=== PATIENT | female | born 1980 ===

== ENCOUNTER 2020-04-14 21:06 | Emergency (ER) | payer OTHER, SELFPAY ==
[2020-04-14 21:17] VITALS: PULSE 84; RESP 18; TEMP 37.2; O2SAT 100; BMI 26.7
--- NOTE | 2020-04-14 21:26 | XR_ITS ---
EXAMINATION: PORTABLE CHEST 1 VIEW CLINICAL INFORMATION: sob . COMPARISON: 11/29/2017. TECHNIQUE: Portable frontal view of the chest was obtained. FINDINGS: The lungs are mildly hypoexpanded. No focal infiltrate, effusion, edema, or pneumothorax. Cardiac and mediastinal silhouettes are within normal limits for technique. No acute bony abnormality seen. IMPRESSION: No evidence of acute disease.
[2020-04-14 21:40] LABS: MANUAL DIFF FLAG NO
[2020-04-14 21:41] LABS: Basophils Percent Auto 0.3 % (0-2); Eosinophils Absolute Auto 0.1 X10*3/uL (0.0-0.4); Eosinophils Percent Auto 1.3 % (0-4); Hematocrit 37.2 % (37-47); Imm Gran Abs Auto 0.01 X10*3/uL (0.00-0.03); Imm Gran Pct Auto 0.1 % (0.0-0.4); Lymphocytes Percent Auto 33.3 % (20-40); Mean Corpuscular HGB Conc 32.3 g/dl (31.0-35.0); Mean Corpuscular Volume 83.8 fL (80-98); Mean Platelet Volume 10.2 fL (9.4-12.3); Monocytes Absolute Auto 0.5 X10*3/uL (0.1-1.2); Monocytes Percent Auto 5.1 % (2-11); Neutrophils Absolute Auto 5.3 X10*3/uL (2.0-8.3); Neutrophils Percent Auto 59.9 % (45-73); Platelet Count 264 X10*3/uL (160-400); Red Blood Count 4.44 X10*6/uL (4.20-5.50); Red Cell Distribution Width 13.7 % (11.0-16.0); White Blood Count 8.9 X10*3/uL (4.8-10.8)
[2020-04-14 22:16] LABS: Anion Gap 14 (12-20); Blood Urea Nitrogen 13 mg/dL (9-16); Calcium 9.3 mg/dL (8.4-10.2); Carbon Dioxide 24 mmol/L (22-29); Chloride 105 mmol/L (96-108); Creatinine Clr Calc Pharmacy 114.3; Estimated Glomerular Filt Rate > 60; Glucose Random 90 mg/dL (60-115); Potassium 3.7 mmol/l (3.3-5.1); Sodium 139 mmol/L (135-145)
--- NOTE | 2020-04-14 22:23 | ED.ASTHMA ---
HPI - Asthma General Chief Complaint: Asthma Stated Complaint: ASTHMA Time Seen by Provider: 04/14/20 22:12 Source: patient Mode of arrival: ambulatory Limitations: no limitations History of Present Illness HPI Narrative: patient comes to emergency room complaining of an asthma exacerbation that occurred yesterday, and also requesting a COVID-19 test. Patient states yesterday she had an asthma exacerbation, used her nebulizer and pump. Patient states she has been using her nebulizer more than usual since yesterday. At this moment, patient is asymptomatic. MD complaint: asthma attack Onset (ago): day(s) Severity: mild Context: none known Associated symptoms: none Related Data Current Asthma Therapy: inhaled bronchodilator Previous Rx's Medication Instructions Recorded duloxetine 30 mg capsule,delayed 30 mg PO BID #60 cap 04/11/20 release prednisone 50 mg PO DAILY #5 tab 04/14/20 Allergies Allergy/AdvReac Type Severity Reaction Status Date / Time Penicillins Allergy Severe HIVES Unverified 03/20/20 14:39 penicillin V Allergy Unknown Verified 01/31/20 00:00 ondansetron Allergy Unknown GERD Uncoded 01/29/20 00:00 penicillin Allergy Unknown hives Uncoded 01/29/20 00:00 Review of Systems Review of Systems: Constitutional: No Weight loss, No Fever, No Chills, No Night Sweats, No Fatigue, No Malaise ENT/Mouth: No Hearing loss, No Ear Pain, No Nasal Congestion, No Sinus Pain, No Hoarseness, No sore throat, No Rhinorrhea, No Swallowing Difficulty Eyes: No Eye Pain, No Swelling, No Redness, No Foreign Body, No Discharge, No Vision Changes Cardiovascular: No Chest Pain, No SOB, No Dyspnea on Exertion, No Orthopnea, No Edema, No Palpitations Respiratory: No Cough, No Sputum, Wheezing yesterday, shortness of breath yesterday, resolved now Gastrointestinal: No Nausea, No Vomiting, No Diarrhea, No Constipation, No abdominal Pain, No Hematochezia, No Melena Genitourinary: no irregular bleeding, No Dysuria, No Urinary Frequency, No Hematuria, No Urinary Incontinence, No Urgency, No Flank Pain, No Urinary Flow Changes, No Hesitancy Musculoskeletal: No joint pain, No Myalgias, No Joint Swelling Skin: No Skin Lesions, No rash Neuro: No Weakness, No Numbness, No Paresthesias, No Loss of Consciousness, No Dizziness, No Headache Psych: No Anxiety/Panic, No Depression, No SI/HI/AH/VH, No Social Issues, Heme/Lymph: No Bruising, No Bleeding,No Lymphadenopathy Endocrine: No Polyuria, No Polydipsia, No Temperature Intolerance [facility] Social History Social History Advance Directives: No Advance Directives Information Provided: Yes Physical Exam Vital Signs: Vital Signs: Vital Signs Temp Pulse Resp Pulse Ox 04/14/20 21:17 99.0 F 84 18 100 Body Mass Index 26.7 Appearance: Alert. Oriented X3. No acute distress. Eyes: Pupils equal, round and reactive to light. ENT: Pharynx normal. Neck: Normal inspection. Neck supple. No lymph nodes noted. No crepitus CVS: Normal heart rate and rhythm. Pulses normal. Normal S1 and S2 Respiratory: No respiratory distress. Breath sounds normal. No Wheezing. No rales Abdomen: Soft and nontender. No rigidity. No distention. good BS x4 Skin: Skin warm and dry. Normal skin color. Normal skin turgor. Extremities: No lower extremity edema. No lower extremity edema. No Lacerations. No Rash Neuro: Oriented X 3. No motor deficit. No sensory deficit. Moving all extermities. No slurred speech. Course Reevaluation(s) Reevaluation #1: physical exam within normal limits, vitals stable MDM - Asthma MDM Narrative Medical decision making narrative: I discussed the physical exam with the patient, which is completely normal. Patient has no wheezing, good air movement, oxygen saturation 100% on room air, per patient's request, she was tested for COVID-19. Lab Data Result diagrams: 04/14/20 21:36 04/14/20 21:36 Labs: Lab Results 04/14/20 04/14/20 04/14/20 Range/Units 21:36 21:36 21:36 WBC 8.9 (4.8-10.8) X10*3/uL RBC 4.44 (4.20-5.50) X10*6/uL Hgb 12.0 (12.0-16.0) g/dl Hct 37.2 (37-47) % MCV 83.8 (80-98) fL MCH 27.0 (27.0-33.0) pg MCHC 32.3 (31.0-35.0) g/dl RDW 13.7 (11.0-16.0) % Plt Count 264 (160-400) X10*3/uL MPV 10.2 (9.4-12.3) fL Immature Gran % (Auto) 0.1 (0.0-0.4) % Neut % (Auto) 59.9 (45-73) % Lymph % (Auto) 33.3 (20-40) % [place] % (Auto) 5.1 (2-11) % Eos % (Auto) 1.3 (0-4) % Baso % (Auto) 0.3 (0-2) % Lymph # (Auto) 3.0 (1.2-4.9) X10*3/uL [place] # (Auto) 0.5 (0.1-1.2) X10*3/uL Eos # (Auto) 0.1 (0.0-0.4) X10*3/uL Baso # (Auto) 0.0 (0.0-0.2) X10*3/uL Abs Immat Gran (auto) 0.01 (0.00-0.03) X10*3/uL Absolute Neuts (auto) 5.3 (2.0-8.3) X10*3/uL Absolute Nucleated RBC 0.000 (0.0-0.012) X10*3/uL Nucleated RBC % (auto) 0.0 (0.0-0.2) /100WBC Hold Blue Top SEE NOTE Sodium 139 (135-145) mmol/L Potassium 3.7 (3.3-5.1) mmol/l Chloride 105 (96-108) mmol/L Carbon Dioxide 24 (22-29) mmol/L Anion Gap 14 (12-20) BUN 13 (9-16) mg/dL Creatinine 0.65 (0.5-1.4) mg/dL Estim Creat Clear Calc 114.3 Estimated GFR > 60 Random Glucose 90 (60-115) mg/dL Calcium 9.3 (8.4-10.2) mg/dL Discharge Plan Discharge Clinical Impression: Normal physical exam, Asthma exacerbation, mild Patient Disposition: Home, Self-Care Instructions: Asthma (ED) Additional Instructions: please self isolate until you have your COVID-19 results back, you will receive a phone call within 72 hours. If you have any worsening symptoms, any new symptoms, please return to the emergency room or call 911 Prescriptions: New prednisone 50 mg tablet 50 mg PO DAILY Qty: 5 RF: 0 No Action duloxetine [Cymbalta] 30 mg capsule,delayed release(DR/EC) 30 mg PO BID Qty: 60 RF: 3
[2020-04-14 22:33] VITALS: BP 140/85; PULSE 79; RESP 18; TEMP 36.6; O2SAT 100
[2020-04-14 22:36] LABS: B Type Natriuretic Peptide 12 pg/mL (<100); Troponin-I High Sensitivity < 3.5 ng/L (<3.5-17.0)
== END 2020-04-14 23:17 | disposition home or self-care (01) ==
PROVIDERS: Emergency Provider Emergency Medicine; PCP Internal Medicine
DX: J45.901 Unspecified asthma with (acute) exacerbation (principal); Z20.828 Contact with and (suspected) exposure to other viral communicable diseases; Z79.899 Other long term (current) drug therapy
CPT/HCPCS: 36415; 71045; 80048; 83880; 84484; 85025; 87635; 99284

== ENCOUNTER → 2020-05-07 14:46 | Outpatient (BNVA) | payer OTHER, SELFPAY | PROVIDERS: PCP Internal Medicine; Visit Provider Internal Medicine Pulmonary Disease | DX: J45.40 Moderate persistent asthma, uncomplicated (principal); J45.901 Unspecified asthma with (acute) exacerbation; Z91.09 Other allergy status, other than to drugs and biological substances; Z88.0 Allergy status to penicillin; Z79.52 Long term (current) use of systemic steroids | CPT/HCPCS: 90686; 99212 ==

== ENCOUNTER 2020-06-13 09:39 | Outpatient (REF) | payer OTHER, SELFPAY ==
[2020-06-19 09:47] LABS: HPV mRNA E6/E7 rflx Not Detected (Not Detected)
== END 2020-06-13 09:40 | disposition home or self-care (01) ==
LOC: HO.LAB 09:39
PROVIDERS: PCP Internal Medicine; Referring Provider Internal Medicine; Visit Provider Advanced Practice Midwife
DX: Z01.419 Encounter for gynecological examination (general) (routine) without abnormal findings (principal); N63.0 Unspecified lump in unspecified breast; N64.4 Mastodynia
CPT/HCPCS: 87624; 87625; 88142

== ENCOUNTER 2020-07-18 14:11 | Outpatient (REF) | payer OTHER, SELFPAY ==
--- NOTE | 2020-07-18 14:20 | MM_ITS ---
EXAMINATION: MM DIAGNOSTIC DIGITAL BREAST TOMOSYNTHESIS, BILATERAL US DIAGNOSTIC ULTRASOUND BREAST, BILATERAL CLINICAL INFORMATION: 40-year-old with palpable areas right 9:00 position and left upper inner quadrant on clinical breast exam. Also tenderness outer left breast. No prior breast imaging. Family history breast cancer in aunt. The lifetime risk of breast cancer based on the Tyrer-Cuzick Model is 10%. COMPARISON: None (current study represents initial baseline exam). TECHNIQUE: Digital breast tomosynthesis is performed in both the craniocaudal and mediolateral oblique views along with computer-aided detection (CAD). Synthesized 2D images are generated from the tomosynthesis. Additional exaggerated right CC view is provided. Ultrasound right breast is targeted to the outer quadrant. Ultrasound left breast is targeted to the upper inner quadrant and 2:00 to 3:00 position. Grayscale imaging and color Doppler are performed without and with harmonics. FINDINGS: The breasts are heterogeneously dense, which may obscure small masses (ACR BI-RADS breast composition Category c). There is no visible mass or architectural abnormality. No abnormal calcifications. The axilla and skin contours are unremarkable. There is no skin thickening or coarsening of the Ilya's ligaments. Ultrasound outer right breast demonstrates a cyst 9:00 position 6 cm from nipple measuring approximately 1.5 x 1.0 cm. There is no solid mass or architectural abnormality. Ultrasound left breast demonstrates a cyst 3:00 position measuring under 1 cm. There is no solid mass or architectural abnormality. No skin thickening or edema tracking in soft tissue planes. Results are discussed with the patient at time of visit. MM/MM tomosynthesis diagnostic BI IMPRESSION: 1. No mammographic evidence of malignancy or inflammatory changes. 2. Simple cyst right breast 9:00 position 1.5 cm and left breast 3:00 position 0.8 cm. ASSESSMENT: BI-RADS 2: Benign RECOMMENDATION: Routine annual mammography screening, beginning age 40, or earlier as clinical risk factors warrant. This patient's information was entered into a reminder system with a target due date for their next mammogram.
== END 2020-07-18 14:12 | disposition home or self-care (01) ==
LOC: HO.MAMMO 14:11
PROVIDERS: Visit Provider Advanced Practice Midwife
DX: N63.0 Unspecified lump in unspecified breast (principal); N64.4 Mastodynia
CPT/HCPCS: 76642; 77062; 77066

== ENCOUNTER → 2020-10-29 14:00 | Outpatient (BNVA) | payer OTHER, SELFPAY | PROVIDERS: PCP Internal Medicine; Visit Provider Internal Medicine Pulmonary Disease | DX: J45.40 Moderate persistent asthma, uncomplicated (principal); M79.7 Fibromyalgia; Z91.09 Other allergy status, other than to drugs and biological substances; Z88.0 Allergy status to penicillin; Z79.51 Long term (current) use of inhaled steroids | CPT/HCPCS: 99212 ==

== ENCOUNTER → 2021-03-03 13:42 | Outpatient (BNVA) | payer OTHER, SELFPAY | PROVIDERS: PCP Internal Medicine; Visit Provider Internal Medicine Pulmonary Disease | DX: J45.40 Moderate persistent asthma, uncomplicated (principal) | CPT/HCPCS: 99212 ==

== ENCOUNTER 2021-03-11 11:33 | Outpatient (REF) | payer OTHER, SELFPAY | END 2021-03-11 11:34 | disposition home or self-care (01) | LOC: HO.LAB 11:33 | PROVIDERS: PCP Internal Medicine; Visit Provider Internal Medicine | DX: Z20.822 Contact with and (suspected) exposure to COVID-19 (principal) | CPT/HCPCS: C9803; U0003; U0005 ==

== ENCOUNTER 2021-07-08 11:12 | Outpatient (REF) | payer OTHER, SELFPAY ==
[2021-07-08 13:23] LABS: Binax Internal Control QC Valid; Binax Now Covid-19 Ag Negative (Negative)
== END 2021-07-08 11:13 | disposition home or self-care (01) ==
LOC: HO.LAB 11:12
PROVIDERS: Visit Provider Internal Medicine
DX: Z20.822 Contact with and (suspected) exposure to COVID-19 (principal)
CPT/HCPCS: 36415; C9803

== ENCOUNTER 2021-07-30 13:06 | Outpatient (REF) | payer OTHER, SELFPAY ==
[2021-07-30 14:08] LABS: Binax Internal Control QC Valid; Binax Now Covid-19 Ag Negative (Negative)
== END 2021-07-30 13:07 | disposition home or self-care (01) ==
LOC: HO.LAB 13:06
PROVIDERS: Visit Provider Internal Medicine
DX: Z20.822 Contact with and (suspected) exposure to COVID-19 (principal)
CPT/HCPCS: C9803

== ENCOUNTER 2021-07-31 14:02 | Emergency (ER) | payer OTHER, SELFPAY ==
--- NOTE | ~2021-07-31 | XR_ITS ---
EXAMINATION: XR CHEST CLINICAL INFORMATION: Cough COMPARISON: Previous chest x-ray April 2020 TECHNIQUE: 2 views of the chest were obtained. FINDINGS: The cardiac and mediastinal contours are normal. The lungs are clear. There is no pleural effusion or pneumothorax. There is mild curvature of the lower thoracic and upper lumbar spine to the left. XR/XR chest 2V IMPRESSION: No evidence for acute disease in the chest.
--- NOTE | 2021-07-31 14:10 | ECG_ITS ---
Test Reason : CHEST PAIN Blood Pressure : / mmHG Vent. Rate : 076 BPM Atrial Rate : 076 BPM P-R Int : 126 ms QRS Dur : 086 ms QT Int : 394 ms P-R-T Axes : -02 024 027 degrees QTc Int : 443 ms Normal sinus rhythm Cannot rule out Anterior infarct , age undetermined Abnormal ECG No previous ECGs available Referred By: Generic ED Physician Electronically Signed By:CORIN YANG MD
[2021-07-31 14:12] VITALS: BP 119/71; PULSE 76; RESP 18; TEMP 36.7; O2SAT 96; BMI 26.5
--- NOTE | 2021-07-31 16:26 | ECG_ITS ---
Test Reason : CHEST PAIN Blood Pressure : / mmHG Vent. Rate : 068 BPM Atrial Rate : 068 BPM P-R Int : 126 ms QRS Dur : 078 ms QT Int : 416 ms P-R-T Axes : 000 041 028 degrees QTc Int : 442 ms Normal sinus rhythm Normal ECG When compared with ECG of 31-JUL-2021 14:10, No significant change was found Referred By: Mili Edouard Electronically Signed By:NOVA GEE
[2021-07-31 16:41] VITALS: BP 118/65; PULSE 70; RESP 17; TEMP 36.6; O2SAT 100
[2021-07-31 16:45] LABS: MANUAL DIFF FLAG NO
[2021-07-31 16:48] LABS: Basophils Percent Auto 0.2 % (0-2); Eosinophils Absolute Auto 0.1 X10*3/uL (0.0-0.4); Eosinophils Percent Auto 1.4 % (0-4); Hematocrit 35.7 % (37.0-47.0); Hemoglobin 11.4 g/dl (12.0-16.0); Imm Gran Abs Auto 0.03 X10*3/uL (0.00-0.03); Imm Gran Pct Auto 0.4 % (0.0-0.4); Lymphocytes Absolute Auto 2.8 X10*3/uL (1.2-4.9); Lymphocytes Percent Auto 32.9 % (20-40); Mean Corpuscular HGB Conc 31.9 g/dl (31.0-35.0); Mean Corpuscular Hemoglobin 25.4 pg (27.0-33.0); Mean Corpuscular Volume 79.5 fL (80.0-98.0); Mean Platelet Volume 10.3 fL (9.4-12.3); Monocytes Absolute Auto 0.5 X10*3/uL (0.1-1.2); Monocytes Percent Auto 5.7 % (2-11); Neutrophils Percent Auto 59.4 % (45-73); Platelet Count 250 X10*3/uL (160-400); Red Blood Count 4.49 X10*6/uL (4.20-5.50); Red Cell Distribution Width 15.1 % (11.0-16.0); White Blood Count 8.4 X10*3/uL (4.8-10.8)
[2021-07-31 16:55] LABS: D Dimer High Sensitivity 221 NG/ML
--- NOTE | 2021-07-31 17:05 | ED_ITS ---
HPI - Chest Pain General Chief Complaint: Chest Pain Stated Complaint: chest pain Time Seen by Provider: 07/31/21 17:05 Source: patient Mode of arrival: ambulatory Limitations: no limitations History of Present Illness HPI narrative: Patient is a 41 year old female presenting to the emergency department today with chest pain. Patient states that she was diagnosed with COVID-19 on July 15 of this year. Patient states that she has had these symptoms consistently since being diagnosed. Patient states that she was recently retested and was found to be COVID-19 negative. Patient describes the chest pain as being across her entire chest, and feeling tight. Patient states that the pain does not ra diate anywhere. Patient states that nothing makes the pain worse or better. Patient denies any dizziness, lightheadedness, abdominal pain, nausea, vomiting, fever, chills, blurry vision, double vision, loss of vision, vaginal bleeding, vaginal discharge, difficulty breathing, shortness of breath, back pain, night sweats, pain with urination, increased urinary frequency, increased urinary urgency, blood in her urine or stool, syncope or a near syncopal episode, recent trauma or falls, bowel incontinence, bladder incontinence, bowel retention, bladder retention, or any other complaints at this time. 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 MD complaint: chest pain Onset (ago): week(s) Timing of current episode: stable Prior episodes: Yes Onset: during rest Pain radiation: none Severity: mild Quality: tightness Relieving factors: nothing Exacerbating factors: nothing Context: recent illness (COVID-19) Treatment prior to arrival: none Risk Factors Coronary artery disease risk factors: none Thoracic aortic dissection risk factors: none Related Data Home Medications Medication Instructions Recorded Confirmed ipratropium 0.5 mg-albuterol 3 mg ml INHALATION 05/07/20 01/19/21 (2.5 mg base)/3 mL nebulization soln Previous Rx's Medication Instructions Recorded duloxetine 30 mg capsule,delayed 30 mg PO BID #60 cap 04/11/20 release (Cymbalta) tizanidine 4 mg tablet 4 mg PO BEDTIME #90 tab 04/23/20 cyclobenzaprine 5 mg tablet 5 mg PO DAILY PRN #10 tab 11/26/20 Breo Ellipta 200 mcg-25 mcg/dose 1 ea PO DAILY #60 ea NS 02/18/21 powder for inhalation (fluticasone furoate-vilanterol) albuterol sulfate 90 mcg/actuation 2 puff INHALATION Q4-6H PRN 30 03/03/21 aerosol inhaler Days #1 ea prednisone 10 mg tablet See Rx Instructions PO DAILY #50 03/03/21 tab dexamethasone 6 mg tablet 6 mg PO DAILY 10 Days #10 tab 07/28/21 dexamethasone 6 mg tablet 6 mg PO DAILY 7 Days #7 tab 07/31/21 Allergies Allergy/AdvReac Type Severity Reaction Status Date / Time Penicillins Allergy Severe HIVES Verified 07/31/21 14:12 penicillin V Allergy Unknown Unknown Verified 07/31/21 14:12 Review of Systems Verdana 4l Constitutional: Verdana 4d Constitutional: Verdana 4d Verdana 4d Reports no additional constitutional complaints, Denies chills, Denies fever(s) and Denies night sweats Verdana 4l Eyes: Verdana 4d Verdana 4d Eyes: Verdana 4d Reports no additional eye complaints, Denies blurry vision, Denies change in vision, Denies diplopia, Denies eye discharge, Denies loss of vision and Denies eye pain Verdana 4l ENT: Verdana 4d Denies dizziness Verdana 4l Cardiovascular: Verdana 4d Cardiovascular: Verdana 4d Verdana 4d Reports no additional cardiovascular complaints, Reports chest pain, Denies lightheadedness, Denies Loss of Consciousness and Denies dyspnea Verdana 4l Respiratory: Verdana 4d Verdana 4d Respiratory: Verdana 4d Reports no additional respiratory complaints and Denies dyspnea Verdana 4l Gastrointestinal: Verdana 4d Gastrointestinal: Verdana 4d Verdana 4d Reports no additional gastrointestinal complaints, Denies abdominal pain, Denies melena, Denies hematochezia, Denies change in bowel habits and Denies change in stool character Verdana 4l Genitourinary: Verdana 4d Verdana 4d Genitourinary: Verdana 4d Denies hematuria, Denies urinary frequency, Denies dysuria, Denies urinary incontinence, Denies urinary hesitancy and Denies urinary urgency Verdana 4l Musculoskeletal: Verdana 4d Musculoskeletal: Verdana 4d Verdana 4d Reports no additional musculoskeletal complaints, Denies numbness and Denies tingling Verdana 4l Neurologic: Verdana 4d Denies dizziness, Denies loss of vision, Denies numbness and Denies tingling Verdana 4l Psychiatric: Verdana 4d Verdana 4d Psychiatric: Verdana 4d Reports no additional psychiatric complaints Verdana 4l Endocrine: Verdana 4d Verdana 4d Endocrine: Verdana 4d Reports no additional endocrine complaints Verdana 4l Hematologic/Lymphatic: Verdana 4d Hematologic/Lymphatic: Verdana 4d Verdana 4d Reports no additional hematologic/lymphatic complaints Verdana 4l Allergic/Immunologic: Verdana 4d Allergic/Immunologic: Verdana 4d Verdana 4d Reports no additional allergic/immunologic complaints PMFSH Past Medical History Attestation statement: The following information was validated with the patient. Source: old records reviewed Medical History Fibromyalgia Polyarthralgia Surgical History Hx of wisdom tooth extraction Family History Family History Maternal Aunt Stomach cancer Paternal Aunt Breast cancer Social History Social History Alcohol intake: never Patient Tobacco Use Status: Never used Tobacco Use of substances other than those prescribed or required for medical reasons: No Advance Directives: No Advance Directives Information Provided: Yes Gender identity: Female Physical Exam Verdana 4l Vital Signs: Verdana 4d Verdana 4d Vital Signs: Verdana 4d Verdana 4Bd Last Vital Signs Verdana 4d Recruiting Manager New 4d Recruiting Manager New 4d Temp 98 F 07/31/21 16:41 Recruiting Manager New 4d Pulse 70 07/31/21 16:41 Recruiting Manager New 4d Resp 17 07/31/21 16:41 BP 118/65 07/31/21 16:41 Pulse Ox 100 07/31/21 16:41 BMI result Body Mass Index 26.5 Const: General: cooperative, no acute distress, alert and awake Nutritional Appearance: well nourished Orientation/consciousness: patient oriented x3 Limitations: no limitations HENMT: Head: Yes normal to inspection and Yes atraumatic Ears: hearing grossly normal bilaterally and external ears normal General nose exam: Normal external nose present, no nasal discharge noted and no epistaxis Face and sinus: Yes normal facial exam, No abrasion and No laceration Mouth: Normal oral and palatal mucosa present, no drooling and no muffled voice Eyes: General: appearance normal, both eyes and all related structures Periorbital: periorbital findings normal Eyelids: Yes eyelids normal Conjunctivae: conjunctivae normal Pupils: Equal, round and reactive pupils present EOM: EOMs intact bilaterally Neck: Neck: Yes normal visual inspection, Yes full ROM and Yes no lymphadenopathy Chest: Chest palpation & inspection: normal inspection of the chest and normal palpation of entire chest wall Resp: Effort & Inspection: normal respiratory effort and able to speak in complete sentences Auscultation: clear to auscultation bilaterally Cardio: Rate: regular rate Rhythm: regular rhythm GI: Inspection: Yes normal to inspection Neuro: General: patient oriented x3 and moves all extremities Cranial nerves: Yes Equal, round and reactive pupils present Cognition (Neuro): normal cognition Motor exam (neuro): 5/5 motor strength present throughout Sensory Exam: Normal double simultaneous stimulation for sensation Coordination: [id number] test normal Extrem: General: Yes normal to inspection, Yes full ROM and Yes capillary refill normal Psych: Appearance: grossly normal Mental Status: mental status grossly normal Affect: normal affect Attitude: cooperative Thought process: Normal thought process present Thought content: Normal thought content present Insight: Good insight present (Psych) Course Course Course Narrative: Patient's chest x-ray was interpreted by a radiologist as showing no acute process. MDM - Chest Pain MDM Narrative Medical decision making narrative: Patient is a 41 year old female presenting to the emergency department today with chest pain. Patient's physical exam was unremarkable. Patient's blood work was unremarkable including a negative d dimer and troponin. Patient's EKG was unremarkable. Patient's chest x-ray showed no acute process. I explained my physical exam findings as well as all test results to the patient. I answered all questions asked by the patient. Patient received IM Toradol which she stated helped her symptoms significantly. I stressed the importance of the patient taking her medication as prescribed. 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 I stressed the importance of the patient returning to the emergency department immediately if her symptoms were to worsen or if she were to develop any dizziness, shortness of breath, difficulty breathing, chest pain, blurry vision, loss of vision, nausea, vomiting, abdominal pain, fever, chills, back pain, or any other complaints. Patient verbalized agreement and understanding with this treatment plan and discharge. Differential Diagnosis Differential diagnosis: Likely stable angina, atypical chest pain, costochondritis and chest pain Medical Records Data Attestation: I reviewed the patient's medical records. Lab Data Attestation: I reviewed the patient's lab results. Result diagrams: 07/31/21 16:39 07/31/21 16:39 Labs: Lab Results 07/31/21 07/31/21 07/31/21 Range/Units 16:39 16:39 16:39 WBC 8.4 (4.8-10.8) X10*3/uL RBC 4.49 (4.20-5.50) X10*6/uL Hgb 11.4 L (12.0-16.0) g/dl Hct 35.7 L (37.0-47.0) % MCV 79.5 L (80.0-98.0) fL MCH 25.4 L (27.0-33.0) pg MCHC 31.9 (31.0-35.0) g/dl RDW 15.1 (11.0-16.0) % Plt Count 250 (160-400) X10*3/uL MPV 10.3 (9.4-12.3) fL Immature Gran % (Auto) 0.4 (0.0-0.4) % Neut % (Auto) 59.4 (45-73) % Lymph % (Auto) 32.9 (20-40) % [place] % (Auto) 5.7 (2-11) % Eos % (Auto) 1.4 (0-4) % Baso % (Auto) 0.2 (0-2) % Lymph # (Auto) 2.8 (1.2-4.9) X10*3/uL [place] # (Auto) 0.5 (0.1-1.2) X10*3/uL Eos # (Auto) 0.1 (0.0-0.4) X10*3/uL Baso # (Auto) 0.0 (0.0-0.2) X10*3/uL Abs Immat Gran (auto) 0.03 (0.00-0.03) X10*3/uL Absolute Neuts (auto) 5.0 (2.0-8.3) x10*3/uL Absolute Nucleated RBC 0.000 (0.0-0.012) X10*3/uL Nucleated RBC % (auto) 0.0 (0.0-0.2) /100WBC D-Dimer High Sensitivty 221 NG/ML Sodium 140 (135-145) mmol/L Potassium 3.4 (3.3-5.1) mmol/L Chloride 106 (96-108) mmol/L Carbon Dioxide 26 (22-29) mmol/L Anion Gap 11 L (12-20) BUN 18 H (9-16) mg/dL Creatinine 0.71 (0.5-1.4) mg/dL Estim Creat Clear Calc 98.4 Estimated GFR > 60 Random Glucose 93 (60-115) mg/dL Calcium 9.0 (8.4-10.2) mg/dL Total Bilirubin 0.8 (0.0-1.0) mg/dL AST 10 (5-31) U/L ALT 11 (0-31) U/L Alkaline Phosphatase 87 (39-117) U/L Troponin I High Sens (<3.5-17.0) ng/L Total Protein 7.0 (6.5-8.0) g/dL Albumin 4.0 (3.5-5.0) g/dL 07/31/21 Range/Units 16:39 WBC (4.8-10.8) X10*3/uL RBC (4.20-5.50) X10*6/uL Hgb (12.0-16.0) g/dl Hct (37.0-47.0) % MCV (80.0-98.0) fL MCH (27.0-33.0) pg MCHC (31.0-35.0) g/dl RDW (11.0-16.0) % Plt Count (160-400) X10*3/uL MPV (9.4-12.3) fL Immature Gran % (Auto) (0.0-0.4) % Neut % (Auto) (45-73) % Lymph % (Auto) (20-40) % [place] % (Auto) (2-11) % Eos % (Auto) (0-4) % Baso % (Auto) (0-2) % Lymph # (Auto) (1.2-4.9) X10*3/uL [place] # (Auto) (0.1-1.2) X10*3/uL Eos # (Auto) (0.0-0.4) X10*3/uL Baso # (Auto) (0.0-0.2) X10*3/uL Abs Immat Gran (auto) (0.00-0.03) X10*3/uL Absolute Neuts (auto) (2.0-8.3) x10*3/uL Absolute Nucleated RBC (0.0-0.012) X10*3/uL Nucleated RBC % (auto) (0.0-0.2) /100WBC D-Dimer High Sensitivty NG/ML Sodium (135-145) mmol/L Potassium (3.3-5.1) mmol/L Chloride (96-108) mmol/L Carbon Dioxide (22-29) mmol/L Anion Gap (12-20) BUN (9-16) mg/dL Creatinine (0.5-1.4) mg/dL Estim Creat Clear Calc Estimated GFR Random Glucose (60-115) mg/dL Calcium (8.4-10.2) mg/dL Total Bilirubin (0.0-1.0) mg/dL AST (5-31) U/L ALT (0-31) U/L Alkaline Phosphatase (39-117) U/L Troponin I High Sens < 3.5 (<3.5-17.0) ng/L Total Protein (6.5-8.0) g/dL Albumin (3.5-5.0) g/dL Discharge Plan Discharge Clinical Impression: COVID-19 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 Patient Disposition: Home, Self-Care Instructions: COVID-19 (Coronavirus Disease 2019) (ED) Prescriptions: New dexamethasone 6 mg tablet 6 mg PO DAILY 7 Days Qty: 7 0RF No Action duloxetine [Cymbalta] 30 mg capsule,delayed release(DR/EC) 30 mg PO BID Qty: 60 3RF Rx Instructions: 1 tab PO BID tizanidine 4 mg tablet 4 mg PO BEDTIME Qty: 90 1RF Breo Ellipta 200-25 mcg/dose blister with device 1 ea PO DAILY Qty: 60 2RF dexamethasone 6 mg tablet 6 mg PO DAILY 10 Days Qty: 10 0RF cyclobenzaprine 5 mg tablet 5 mg PO DAILY PRN (Reason: muscle spasm) Qty: 10 0RF Rx Instructions: Do not take with tizanidine medication ipratropium-albuterol 0.5 mg-3 mg(2.5 mg base)/3 mL solution for nebulization inhalation 0RF albuterol sulfate 90 mcg/actuation HFA aerosol inhaler 2 puff inhalation Q4-6H PRN (Reason: shortness of breath or wheezing) 30 Days Qty: 1 6RF prednisone 10 mg tablet See Rx Instructions PO DAILY Qty: 50 0RF Rx Instructions: Take 4 tabs daily for 5 days, then go down by 1 tab every 5 days Referrals: Katy Ayers MD [Primary Care Provider] - 2 days Print Language: Slovenian
[2021-07-31 17:07] LABS: Alanine Aminotransferase 11 U/L (0-31); Alkaline Phosphatase 87 U/L (39-117); Anion Gap 11 (12-20); Aspartate Amino Transferase 10 U/L (5-31); Bilirubin Total 0.8 mg/dL (0.0-1.0); Blood Urea Nitrogen 18 mg/dL (9-16); Carbon Dioxide 26 mmol/L (22-29); Chloride 106 mmol/L (96-108); Creatinine Clr Calc Pharmacy 98.4; Estimated Glomerular Filt Rate > 60; Glucose Random 93 mg/dL (60-115); Potassium 3.4 mmol/L (3.3-5.1); Sodium 140 mmol/L (135-145)
[2021-07-31 17:12] LABS: Troponin-I High Sensitivity < 3.5 ng/L (<3.5-17.0)
[2021-07-31] MEDS: Ketorolac Tromethamine 30 MG/ML VIAL IM (17:38)
== END 2021-07-31 18:04 | disposition home or self-care (01) ==
PROVIDERS: Emergency Provider Emergency Medicine; PCP Internal Medicine
DX: U07.1 COVID-19 (principal); R07.89 Other chest pain; Z79.899 Other long term (current) drug therapy
CPT/HCPCS: 36415; 71046; 80053; 84484; 85025; 85379; 93005; 96372; 99284; 99285; J1885

== ENCOUNTER 2021-09-24 10:32 | Outpatient (REF) | payer OTHER, SELFPAY ==
[2021-09-24 11:19] LABS: COVID-19 Test Negative (Negative)
== END 2021-09-24 10:33 | disposition home or self-care (01) ==
LOC: HO.LAB 10:32
PROVIDERS: Visit Provider Internal Medicine
DX: Z20.822 Contact with and (suspected) exposure to COVID-19 (principal)
CPT/HCPCS: 87635; C9803

== ENCOUNTER 2021-10-21 08:59 | Outpatient (REF) | payer OTHER, SELFPAY ==
--- NOTE | ~2021-10-21 | XR_ITS ---
EXAMINATION: XR CHEST CLINICAL INFORMATION: Bronchitis COMPARISON: July 31, 2021 TECHNIQUE: 2 views of the chest were obtained. FINDINGS: No significant abnormality is noted involving the heart, lungs, mediastinum, bony thorax or soft tissues. XR/XR chest 2V IMPRESSION: No acute disease.
[2021-10-21 09:44] LABS: MANUAL DIFF FLAG NO
[2021-10-21 10:28] LABS: Basophils Percent Auto 0.3 % (0-2); Eosinophils Absolute Auto 0.2 X10*3/uL (0.0-0.4); Eosinophils Percent Auto 2.5 % (0-4); Hematocrit 36.4 % (37.0-47.0); Hemoglobin 11.4 g/dl (12.0-16.0); Imm Gran Abs Auto 0.02 X10*3/uL (0.00-0.03); Imm Gran Pct Auto 0.3 % (0.0-0.4); Lymphocytes Absolute Auto 2.3 X10*3/uL (1.2-4.9); Lymphocytes Percent Auto 35.5 % (20-40); Mean Corpuscular HGB Conc 31.3 g/dl (31.0-35.0); Mean Corpuscular Hemoglobin 25.4 pg (27.0-33.0); Mean Corpuscular Volume 81.3 fL (80.0-98.0); Mean Platelet Volume 10.7 fL (9.4-12.3); Monocytes Absolute Auto 0.4 X10*3/uL (0.1-1.2); Monocytes Percent Auto 6.7 % (2-11); Neutrophils Absolute Auto 3.5 x10*3/uL (2.0-8.3); Neutrophils Percent Auto 54.7 % (45-73); Platelet Count 276 X10*3/uL (160-400); Red Blood Count 4.48 X10*6/uL (4.20-5.50); White Blood Count 6.4 X10*3/uL (4.8-10.8)
[2021-10-21 11:01] LABS: Alanine Aminotransferase 12 U/L (0-31); Alkaline Phosphatase 90 U/L (39-117); Anion Gap 12 (12-20); Aspartate Amino Transferase 13 U/L (5-31); Bilirubin Total 0.3 mg/dL (0.0-1.0); Blood Urea Nitrogen 16 mg/dL (9-16); Calcium 9.2 mg/dL (8.4-10.2); Carbon Dioxide 25 mmol/L (22-29); Chloride 104 mmol/L (96-108); Estimated Glomerular Filt Rate > 60; Glucose Random 109 mg/dL (60-115); Potassium 4.2 mmol/L (3.3-5.1); Sodium 137 mmol/L (135-145); Total Protein 6.9 g/dL (6.5-8.0)
== END 2021-10-21 09:00 | disposition home or self-care (01) ==
LOC: HO.LAB 08:59
PROVIDERS: PCP Internal Medicine; Visit Provider Internal Medicine
DX: J40 Bronchitis, not specified as acute or chronic (principal)
CPT/HCPCS: 36415; 71046; 80053; 85025

== ENCOUNTER → 2022-02-04 09:09 | Outpatient (BNVA) | payer OTHER, SELFPAY | PROVIDERS: PCP Internal Medicine; Visit Provider Internal Medicine Pulmonary Disease | DX: J45.40 Moderate persistent asthma, uncomplicated (principal); J40 Bronchitis, not specified as acute or chronic; Z91.09 Other allergy status, other than to drugs and biological substances | CPT/HCPCS: 99212 ==

== ENCOUNTER 2022-03-18 17:48 | Emergency (ER) | payer OTHER, SELFPAY ==
[2022-03-18 19:07] VITALS: BP 146/79; PULSE 77; RESP 19; TEMP 36.8; O2SAT 99; BMI 28.3
== END 2022-03-18 21:44 | disposition left against medical advice (07) ==
LOC: HO.ED 21:29
PROVIDERS: Emergency Provider Emergency Medicine; PCP Internal Medicine
DX: M79.7 Fibromyalgia (principal)
CPT/HCPCS: 99281

== ENCOUNTER → 2022-10-15 09:41 | Outpatient (BNVA) | payer OTHER, SELFPAY | PROVIDERS: PCP Internal Medicine; Visit Provider Student in an Organized Health Care Education/Training Program | DX: M79.7 Fibromyalgia (principal) | CPT/HCPCS: 99212 ==

== ENCOUNTER 2023-03-25 11:00 | Outpatient (AMB) | payer OTHER, SELFPAY ==
[2023-03-25 13:23] VITALS: BP 118/70; PULSE 88; TEMP 36.8; O2SAT 99; BMI 29.5
--- NOTE | 2023-03-25 13:23 | AM.OFFWIN_ITS ---
Intake Vital Signs 03/25/23 13:23 Height 5 ft 3 in Weight 166 lb 6 oz BMI 29.5 BP 118/70 Blood Pressure Location Rt brachial Position Sitting Pulse 88 Pulse Source Pulse Oximeter Temp 98.2 F Temp Source Temporal Artery Scan Pulse Oximetry (%) 99 Oxygen Delivery Method Room Air Intake Visit Reasons: EST/sob/ flem(masked lobby) nocar Intake Note: pt is here for c/o possible bronchitis, 1 1/2 week ago Patient Tobacco Use Status: Never used Tobacco Allergies Penicillins Allergy (Verified 03/25/23 13:25) Anaphylaxis Do you need a note to return to daycare/school/sports/work: Yes HPI HPI Comments History of Present Illness Details This is a 42-year-old female who presents to the office today for sick visit. Patient complaining of a productive cough with green-yellow sputum and chest congestion times 3-4 days in the setting of recent viral URI. She reports some mild shortness of breath and difficulty breathing. Patient states she has been utilizing her albuterol inhalers at home. She denies any fevers or chills. She denies any chest pain. She denies any abdominal pain or nausea/vomiting /diarrhea. [facility] Medical History (Updated 10/15/22 @ 10:31 by Leigh Coyne MD) Bronchitis Polyarthralgia Surgical History Keloid scar Hx of wisdom tooth extraction Family History Maternal Aunt Stomach cancer Paternal Aunt Breast cancer Mother Asthma CAD (coronary artery disease) Father CAD (coronary artery disease) Social History Housing: Apartment Alcohol intake: current Alcohol intake frequency: holidays/special occasions only Alcohol type: hard liquor Patient Tobacco Use Status: Never used Tobacco e-Cigarette/Vaping Use: Never Used Second Hand Smoke Exposure: No service: No Current occupational status: employed Current occupation: works in [employer] Gender identity: Female Cognitive needs: No Hearing needs: No Vision needs: Yes Review of Systems Const All systems reviewed & are unremarkable except as noted in HPI and below Reports no additional complaints Eyes Reports no additional complaints ENT Reports no additional complaints Card Reports no additional complaints Resp Reports no additional complaints GI Reports no additional complaints Reports no additional complaints Musc Reports no additional complaints Skin/Breast Reports system reviewed and no additional complaints, except as documented Neuro Reports no additional complaints Psych Reports no additional complaints Endo Reports no additional complaints José Miguel/Lymph Reports no additional complaints Aller/Immun Reports no additional complaints Physical Exam Vital Signs: Last Vital Signs Temp 98.2 F 03/25/23 13:23 Pulse 88 03/25/23 13:23 BP 118/70 03/25/23 13:23 Pulse Ox 99 03/25/23 13:23 Oxygen Delivery Method Room Air 03/25/23 13:23 BMI result Body Mass Index 29.5 Const Other: Vital signs reviewed. Constitutional: Non-toxic appearing. No acute distress. Well-developed and well-nourished. HEENT: Normocephalic and atraumatic. Moist mucous membranes. No pharyngeal erythema or exudates. PERRL/EOMI. Skin: Warm and dry. No rashes or lesions noted. Neck: Full and painless range of motion. No cervical lymphadenopathy. Cardio: Regular rate and rhythm. No murmurs, gallops, or rubs. No lower extr emity edema. No JVD. Pulmonary: No respiratory distress. No accessory muscle usage. Scattered expiratory wheezing. Gastrointestinal: Soft, nontender, and nondistended in all 4 quadrants. Normoactive bowel sounds in all 4 quadrants. Genitourinary: No CVA tenderness. Musculoskeletal: Normal range of motion in joints throughout the body. No deformity or other signs of injury. Neuro: Alert and oriented x4. Cranial nerves 2-12 grossly intact. No focal deficits appreciated. Psych: Normal mood and affect. Office Procedures Nebulizer Treatment Nebulizer Treatment [id number]/MDI RX initial, or Nebulizer Subsequent Treatment Office Meds albuterol sulfate 2.5 mg/3 mL (0.083 %) solution for nebulization Performing Provider: DELIA Vidal Performing Location: [facility] Administered by: Latricia Moura RN on 03/25/23 13:51 Dose Route Admin Location Dispensed Lot Number Expiration Date [employer] 2.5 mg inhalation 3 mL [id number] 09/01/24 37322-823-58 [employer] Assessment & Plan Assessment & Plan (1) Acute asthmatic bronchitis: Code(s): J45.909 - Unspecified asthma, uncomplicated Plan: This is a 42-year-old female past medical history significant for asthma who presents to the office complaining of chest congestion and a productive cough with green-yellow sputum. Physical examination, patient has scattered expiratory wheezing but her physical exam is otherwise benign, her vital signs are stable, and patient is overall nontoxic appearing. Her history and physical most consistent with an acute asthmatic bronchitis in the setting of viral URI. Patient was given albuterol nebulizer treatment in the office with improvement in her symptoms. Patient is maintaining oxygen saturations on room air. She will be sent home on p.o. prednisone 40 mg daily x5 days, p.o. azithromycin 500 mg today followed by 250 mg daily x4 days, and PO benzonatate 100 mg 3 times daily as needed for cough. Recommended symptomatic management including rest, increased fluids, advil/tylenol for pain/fever, and over the counter throat lozenges/decongestants. Patient advised to follow up here or go to the emergency room for worsening/persistent symptoms. Patient verbalized understanding and is agreeable with the plan. Orders: Orders AMB Nebulizer Treatment Today R06.2 - Wheezing Coding Level of Care Code Est Pt Level 3 (17378) Diagnoses Acute asthmatic bronchitis J45.909 CPT Codes Nebulizer Treatment - Nebulizer Treatment, initial or subsequent: 82492- Nebulizer/MDI RX initial, or Nebulizer Subsequent Treatment ([id number])
== END 2023-03-25 14:07 | disposition home or self-care (01) ==
PROVIDERS: PCP Internal Medicine; Visit Provider Physician Assistant Medical
DX: R06.2 Wheezing (principal); J45.909 Unspecified asthma, uncomplicated
CPT/HCPCS: 94640; 99213; J7613

== ENCOUNTER 2023-04-20 15:52 | Outpatient (AMB) | payer OTHER, SELFPAY ==
[2023-04-20 16:03] VITALS: BP 126/66; PULSE 102; O2SAT 99; BMI 29.2
--- NOTE | 2023-04-20 16:03 | A.OFFVIS_ITS ---
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 Machine Operator: Sweatband Decorating Machine Operator offered & declined Accompanied by: Self / Same As Patient Allergies Penicillins Allergy (Verified 04/20/23 16:06) Anaphylaxis Medication List - Last Reconciled 04/20/23 by Kailyn Davidson LPN albuterol sulfate 90 mcg/actuation 2 puffs inhalation Q4-6H PRN 30 days benzonatate 100 mg PO TID PRN Breo Ellipta 200-25 mcg/dose (fluticasone furoate-vilanterol) 1 ea PO DAILY NS ibuprofen 400 mg PO Q8H ipratropium-albuterol 0.5 mg-3 mg(2.5 mg base)/3 mL 3 mL inhalation Q6H PRN tizanidine 4 mg PO BEDTIME HPI productive cough HPI Details Asha is a pleasant 42-year-old female, nonsmoker, followed for underlying moderate persistent asthma and environmental allergies. Today she presents for an acute visit. She reports initially productive cough with yellow sputum now nonproductive with chest congestion, chest tightness and dyspnea for the past 4 weeks. She has been seen at urgent care prescribed a zpak and 5 day course of prednisone with no improvement in symptoms. She denies fevers or chills. She reports her daughter recently tested positive to RSV. She has been without her Breo and is requesting refills. [facility] Medical History (Updated 10/15/22 @ 10:31 by Leigh Coyne MD) Bronchitis Polyarthralgia Surgical History Keloid scar Hx of wisdom tooth extraction Family History Maternal Aunt Stomach cancer Paternal Aunt Breast cancer Mother Asthma CAD (coronary artery disease) Father CAD (coronary artery disease) Social History (Updated 04/20/23 @ 16:09 by Kailyn Davidson LPN) Housing: Apartment Alcohol intake: current Alcohol intake frequency: holidays/special occasions only Alcohol type: hard liquor Patient Tobacco Use Status: Never used Tobacco Smoked in Last 30 Days: No e-Cigarette/Vaping Use: Never Used Second Hand Smoke Exposure: No service: No Current occupational status: employed Current occupation: works in [employer] Gender identity: Female Cognitive needs: No Hearing needs: No Vision needs: Yes Review of Systems Const Denies chills, Denies excessive sweating, Denies fever(s), Denies headache(s) and Denies night sweats Eyes Denies dry eyes, Denies irritation and Denies itchy eyes ENT Reports Normal hearing present, Denies headache(s), Denies nasal congestion, Denies nasal discharge, Denies post nasal drip and Denies sore throat Card Denies chest pain, Denies chest pain at rest, Denies chest pain with activity, Denies claudication, Denies leg edema, Denies orthopnea and Denies paroxysmal nocturnal dyspnea Resp Denies excessive phlegm production, Denies pain on inspiration, Denies pain with cough and Denies stridor Musc Denies myalgias Neuro Reports Normal hearing present and Denies headache(s) Endo Denies excessive sweating José Miguel/Lymph Denies lymphadenopathy Aller/Immun Denies itchy eyes and Denies seasonal rhinorrhea Physical Exam Vital Signs: Last Vital Signs Pulse 102 H 04/20/23 16:03 BP 126/66 04/20/23 16:03 Pulse Ox 99 04/20/23 16:03 Oxygen Delivery Method Room Air 04/20/23 16:03 BMI result Body Mass Index 29.2 Const General: cooperative, healthy appearing, comfortable, no acute distress, well developed and alert Nutritional Appearance: obese Orientation/consciousness: patient oriented x3 Limitations: no limitations HEENT Head: Yes normal to inspection, Yes normocephalic and Yes atraumatic Ears: hearing grossly normal bilaterally and external ears normal Eyes General: appearance normal, both eyes and all related structures Eyelids: Yes eyelids normal Sclerae: sclerae normal EOM: EOMs intact bilaterally Neck Neck: Yes normal visual inspection and Yes no lymphadenopathy Lymphatic: no lymphadenopathy noted Chest Chest palpation & inspection: normal inspection of the chest Resp Other: persistent dry cough throughout visit, improved after duoneb Effort & Inspection: normal respiratory effort, able to speak in complete sentences, no audible wheezes, no stridor, not tachypneic, no tripod positioning and no use of accessory muscles Auscultation: wheezes (faint) expiratory wheezes and throughout Cardio Jugular venous distension: no JVD Rate: regular rate Rhythm: regular rhythm Skin Other: warm, dry General skin exam: no rashes or lesions noted Neuro General: patient oriented x3 Cranial nerves: Yes Normal hearing present Cognition (Neuro): normal cognition Gait exam (Neuro): Normal gait present Extrem General: Yes normal to inspection, Yes capillary refill normal, Yes no clubbing, cyanosis or edema and Yes no pedal edema Psych Appearance: grossly normal and well kempt Speech and movement: Normal speech and movement present and Clear speech present Affect: normal affect Attitude: cooperative Thought process: Normal thought process present Thought content: Normal thought content present Insight: Good insight present (Psych) Judgement: Good judgement present (Psych) Office Procedures Nebulizer Treatment Nebulizer Treatment [id number]/MDI RX initial, or Nebulizer Subsequent Treatment Office Meds ipratropium 0.5 mg-albuterol 3 mg (2.5 mg base)/3 mL nebulization soln Performing Provider: Mili Kat NP Performing Location: [facility] [place] Pul[facility]ology Services-[facility] Administered by: Kailyn Davidson LPN on 04/20/23 16:25 Dose Route Admin Location Dispensed Lot Number Expiration Date [facility] 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 Will treat with doxycyline, as she recently finished course of azithromycin and anaphylaxis to N. Will also refill Breo and albuterol. Emphasized importance of using daily maintenance inhaler. She is aware if symptoms worsen to seek emergent care or call the office if they do not improve. All questions were answered and patient is in agreement of plan. Will follow up with Dr. Elam for her regularly scheduled appointment. Orders: Orders AMB Nebulizer Treatment Today J40 - Bronchitis, not specified as acute or chronic, J45.40 - Moderate persistent asthma, uncomplicated Medications: New prednisone see taper instructions Take 4 pills daily for 5 days, then go down by 1 pill every 5 days; 20 days 50 tabs 0RF 10 mg PO DIRECTED 50 tabs 0RF doxycycline hyclate 100 mg PO BID 20 caps 0RF Refilled ipratropium-albuterol 0.5 mg-3 mg(2.5 mg base)/3 mL 3 mL inhalation Q6H PRN 180 mL 1RF shortness of breath or wheezing J45.40 - Moderate persistent asthma, uncomplicated albuterol sulfate 90 mcg/actuation 2 puffs inhalation Q4-6H 30 days PRN 1 ea 6RF shortness of breath or wheezing Breo Ellipta 200-25 mcg/dose (fluticasone furoate-vilanterol) 1 ea PO DAILY 60 ea 6RF NS Coding Level of Care Code Est Pt Level 3 (54994) Diagnoses Moderate persistent asthma J45.40 Bronchitis J40 CPT Codes Nebulizer Treatment - Nebulizer Treatment, initial or subsequent: 81479- Nebulizer/MDI RX initial, or Nebulizer Subsequent Treatment ([id number])
== END 2023-04-20 16:36 | disposition home or self-care (01) ==
LOC: HO.HPSW 15:52
PROVIDERS: PCP Internal Medicine; Visit Provider Nurse Practitioner Family
DX: J45.40 Moderate persistent asthma, uncomplicated (principal); J40 Bronchitis, not specified as acute or chronic
CPT/HCPCS: 99213

== ENCOUNTER → 2023-04-20 15:52 | Outpatient (BNVA) | payer OTHER, SELFPAY | PROVIDERS: PCP Internal Medicine; Visit Provider Nurse Practitioner Family | DX: J45.40 Moderate persistent asthma, uncomplicated (principal); J40 Bronchitis, not specified as acute or chronic | CPT/HCPCS: 94640; 99212 ==

== ENCOUNTER 2023-04-27 14:17 | Outpatient (AMB) | payer OTHER, SELFPAY ==
--- NOTE | 2023-04-27 14:22 | A.OFFVIS_ITS ---
Intake Vital Signs 04/27/23 14:23 Height 5 ft 3 in Weight 165 lb BMI 29.2 BP 134/78 Blood Pressure Location Lt brachial Position Sitting Pulse 98 Pulse Source Pulse Oximeter Pulse Oximetry (%) 99 Oxygen Delivery Method Room Air Intake Visit Reasons: SOB, tightness. Service Desk Technician Required: No Paint Laboratory Technician: Paint Laboratory Technician offered & declined Accompanied by: Self / Same As Patient Allergies Penicillins Allergy (Verified 04/27/23 14:27) Anaphylaxis Medication List - Last Reconciled 04/27/23 by Kailyn Davidson LPN albuterol sulfate 90 mcg/actuation 2 puffs inhalation Q4-6H PRN 30 days benzonatate 100 mg PO TID PRN Breo Ellipta 200-25 mcg/dose (fluticasone furoate-vilanterol) 1 ea PO DAILY NS doxycycline hyclate 100 mg PO BID ibuprofen 400 mg PO Q8H ipratropium-albuterol 0.5 mg-3 mg(2.5 mg base)/3 mL 3 mL inhalation Q6H PRN prednisone 10 mg PO DIRECTED tizanidine 4 mg PO BEDTIME HPI SOB, tightness. HPI Details Asha is a pleasant 42-year-old female, nonsmoker, followed for underlying moderate persistent asthma and environmental allergies. Today she presents for an acute visit. She was seen last week for persistent symptoms of nonproductive cough, chest congestion, chest tightness and dyspnea for the past 4 weeks. She received azithromycin and prednisone x 5 days with mild improvement in symptoms but shortly after medications were completed, symptoms returned. She then had a visit last week and was placed on prednisone as well as doxycyline. Today she presents with worsening symptoms of chest congestion, wheezing, chest tightness, and dyspnea. She did start using her Breo consistently, as she had been without for almost one year and has been using duoneb QD. She reports using albuterol MDI upwards of 3-4 times per day over the past week. [facility] Medical History (Updated 10/15/22 @ 10:31 by Leigh Coyne MD) Bronchitis Polyarthralgia Surgical History Keloid scar Hx of wisdom tooth extraction Family History Maternal Aunt Stomach cancer Paternal Aunt Breast cancer Mother Asthma CAD (coronary artery disease) Father CAD (coronary artery disease) Social History (Updated 04/27/23 @ 14:28 by Kailyn Davidson LPN) Housing: Apartment Alcohol intake: current Alcohol intake frequency: holidays/special occasions only Alcohol type: hard liquor Patient Tobacco Use Status: Never used Tobacco Smoked in Last 30 Days: No e-Cigarette/Vaping Use: Never Used Second Hand Smoke Exposure: No service: No Current occupational status: employed Current occupation: works in [email or web address] Gender identity: Female Cognitive needs: No Hearing needs: No Vision needs: Yes Review of Systems Const Denies chills, Denies excessive sweating, Denies fever(s), Denies headache(s) and Denies night sweats Eyes Denies dry eyes, Denies irritation and Denies itchy eyes ENT Reports Normal hearing present, Denies headache(s), Denies nasal congestion, Denies nasal discharge, Denies post nasal drip and Denies sore throat Card Denies chest pain, Denies chest pain at rest, Denies chest pain with activity, Denies claudication, Denies leg edema, Denies orthopnea and Denies paroxysmal nocturnal dyspnea Resp Denies excessive phlegm production, Denies pain on inspiration, Denies pain with cough and Denies stridor Musc Denies myalgias Neuro Reports Normal hearing present and Denies headache(s) Endo Denies excessive sweating José Miguel/Lymph Denies lymphadenopathy Aller/Immun Denies itchy eyes and Denies seasonal rhinorrhea Physical Exam Vital Signs: Last Vital Signs Pulse 98 04/27/23 14:23 BP 134/78 04/27/23 14:23 Pulse Ox 99 04/27/23 14:23 Oxygen Delivery Method Room Air 04/27/23 14:23 BMI result Body Mass Index 29.2 Const General: cooperative, healthy appearing, comfortable, no acute distress, well de veloped and alert Nutritional Appearance: obese Orientation/consciousness: patient oriented x3 Limitations: no limitations HEENT Head: Yes normal to inspection, Yes normocephalic and Yes atraumatic Ears: hearing grossly normal bilaterally and external ears normal Eyes General: appearance normal, both eyes and all related structures Eyelids: Yes eyelids normal Sclerae: sclerae normal EOM: EOMs intact bilaterally Neck Neck: Yes normal visual inspection and Yes no lymphadenopathy Lymphatic: no lymphadenopathy noted Chest Chest palpation & inspection: normal inspection of the chest Resp Other: persistent dry cough throughout visit, improved after duoneb Effort & Inspection: normal respiratory effort, able to speak in complete sentences, no audible wheezes, no stridor, not tachypneic, no tripod positioning and no use of accessory muscles Auscultation: diminished lung sounds bilateral in the lower lung albarado Cardio Jugular venous distension: no JVD Rate: regular rate Rhythm: regular rhythm Skin Other: warm, dry General skin exam: no rashes or lesions noted Neuro General: patient oriented x3 Cranial nerves: Yes Normal hearing present Cognition (Neuro): normal cognition Gait exam (Neuro): Normal gait present Extrem General: Yes normal to inspection, Yes capillary refill normal, Yes no clubbing, cyanosis or edema and Yes no pedal edema Psych Appearance: grossly normal and well kempt Speech and movement: Normal speech and movement present and Clear speech present Affect: normal affect Attitude: cooperative Thought process: Normal thought process present Thought content: Normal thought content present Insight: Good insight present (Psych) Judgement: Good judgement present (Psych) Office Procedures Nebulizer Treatment Nebulizer Treatment [id number] RX initial, or Nebulizer Subsequent Treatment Office Meds ipratropium 0.5 mg-albuterol 3 mg (2.5 mg base)/3 mL nebulization soln Performing Provider: Mili Kat NP Performing Location: [facility] [place] Pul[facility]ology Services[facility] Administered by: Kailyn Davidson LPN on 04/27/23 14:46 Dose Route Admin Location Dispensed Lot Number Expiration Date [facility] Hot Air Furnace 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 Initially improved with azithromycin then symptoms returned shortly after course. Was seen last week in office and treated with doxycyline and prednisone, now reporting worsening of chest congestion. Will send in levaquin. Reviewed potential side effects and when to discontinue if SE develop. If no improvements, will send for sputum culture and CXR. There was no wheezing on exam, but diminished bases bilaterally, which improved with duoneb. Encouraged patient to use duoneb BID for the next few days as well as mucinex DM and complete prednisone course. Advised to continue Breo. She is aware if symptoms worsen to seek emergent care or call the office if they do not improve. All questions were answered and patient is in agreement of plan. Will follow up with Dr. Elam for her regularly scheduled appointment. Orders: Orders AMB Nebulizer Treatment Today J45.40 - Moderate persistent asthma, uncomplicated, Z91.09 - Other allergy status, other than to drugs and biological substances Medications: New levofloxacin 750 mg PO DAILY 7 tabs 0RF Coding Level of Care Code Est Pt Level 3 (53280) Diagnoses Moderate persistent asthma J45.40 Bronchitis J40 CPT Codes Nebulizer Treatment - Nebulizer Treatment, initial or subsequent: 95871- Nebulizer/MDI RX initial, or Nebulizer Subsequent Treatment ([id number])
[2023-04-27 14:23] VITALS: BP 134/78; PULSE 98; O2SAT 99; BMI 29.2
== END 2023-04-27 15:40 | disposition home or self-care (01) ==
LOC: HO.HPSW 14:17
PROVIDERS: PCP Internal Medicine; Visit Provider Nurse Practitioner Family
DX: J45.40 Moderate persistent asthma, uncomplicated (principal); Z91.09 Other allergy status, other than to drugs and biological substances; J40 Bronchitis, not specified as acute or chronic
CPT/HCPCS: 99213

== ENCOUNTER → 2023-04-27 14:17 | Outpatient (BNVA) | payer OTHER, SELFPAY | PROVIDERS: PCP Internal Medicine; Visit Provider Nurse Practitioner Family | DX: J45.40 Moderate persistent asthma, uncomplicated (principal); J40 Bronchitis, not specified as acute or chronic | CPT/HCPCS: 94640; 99212 ==

== ENCOUNTER 2023-05-11 16:05 | Outpatient (AMB) | payer OTHER, SELFPAY ==
[2023-05-11 16:10] VITALS: BP 122/70; PULSE 74; O2SAT 98; BMI 28.7
--- NOTE | 2023-05-11 16:10 | MHC.PC.OV ---
Vital Signs 05/11/23 16:10 Height 5 ft 3 in Weight 162 lb BMI 28.7 BP 122/70 Blood Pressure Location Lt brachial Position Sitting Pulse 74 Pulse Source Pulse Oximeter Pulse Oximetry (%) 98 Oxygen Delivery Method Room Air Intake Visit Reasons: PHYSICAL Intake Note: Patient is here today for a physical. Check Examiner Required: No Accompanied by: Self / Same As Patient Allergies Penicillins Allergy (Verified 05/11/23 16:24) Anaphylaxis Medication List - Last Reconciled 05/11/23 by Katy Feng MD albuterol sulfate 90 mcg/actuation 2 puffs inhalation Q4-6H PRN 30 days Breo Ellipta 200-25 mcg/dose (fluticasone furoate-vilanterol) 1 ea PO DAILY NS ibuprofen 400 mg PO Q8H ipratropium-albuterol 0.5 mg-3 mg(2.5 mg base)/3 mL 3 mL inhalation Q6H PRN tizanidine 4 mg PO BEDTIME Tobacco use date assessed: 05/11/23 Dental Screening Dental Screen Date: 05/11/23 Did you have a dental visit in the last 12 months?: Yes Did you have a dental problem in the last 6 months where you did not have access to dental care?: No Was dental information given to patient?: Patient has dentist HPI HPI Comments History of Present Illness Details This is a 42-year-old female with mild recurrent major depression that comes for her physical exam. Depression has been in remission. Last mammogram was 2020. Last Pap smear was 2020 was normal with HPV negative. No chest pain or shortness of breath. [facility] Medical History Bronchitis Polyarthralgia Surgical History Keloid scar Hx of wisdom tooth extraction Family History Maternal Aunt Stomach cancer Paternal Aunt Breast cancer Mother Asthma CAD (coronary artery disease) Father CAD (coronary artery disease) Social History Housing: Apartment Alcohol intake: current Alcohol intake frequency: holidays/special occasions only Alcohol type: hard liquor Patient Tobacco Use Status: Never used Tobacco e-Cigarette/Vaping Use: Never Used Second Hand Smoke Exposure: No service: No Current occupational status: employed Current occupation: works in [employer] Gender identity: Female Cognitive needs: No Hearing needs: No Vision needs: Yes Questionnaire PHQ-9 Over the last 2 weeks, how often have you been bothered by any of the following problems? 1. Little interest or pleasure in doing things: not at all 2. Feeling down, depressed, or hopeless: not at all 3. Trouble falling or staying asleep, or sleeping too much: not at all 4. Feeling tired or having little energy: not at all 5. Poor appetite or overeating: not at all 6. Feeling bad about yourself - or that you are a failure or have let yourself or your family down: not at all 7. Trouble concentrating on things, such as reading the newspaper or watching television: not at all 8. Moving or speaking so slowly that other people could have noticed. Or the opposite - being so fidgety or restless that you have been moving around a lot more than usual: not at all 9. Thoughts that you would be better off or of hurting yourself in some way: not at all Total score: 0 Depression Screening Interpretation: Negative Depression Screening Done: Yes 94693 - PHQ-9 Billing: Yes Source: Developed by Drs. Xavi Jameson, Sadie Tafoya, Eder Villafana and colleagues, with an educational starr from [employer]. Thrive Questionnaire Date Thrive assessed: 05/11/23 I am a: Patient What is your living situation today?: I have a steady place to live Within the past 12 months, did the food you bought not last and you didn't have the money to get more?: Never true Within the past 12 months, did you worry whether your food would run out before you got money to buy more?: Never true Do you have trouble paying for medicines?: No Do you have trouble getting transportation to medical appointments?: No Do you have trouble paying your heating and electricity bill?: No Do you have trouble taking care of your child, family member or friend?: No Do you have trouble with day-to-day activities such as bathing, preparing meals, shopping, managing finances, etc.?: No Are you currently unemployed and looking for a job?: No Are you interested in more education?: No AUDIT C Alcohol Use Questionnaire (AUDIT-C) 1. How often do you have a drink containing alcohol?: Monthly or less 2. How many drinks containing alcohol do you have on a typical day when you are drinking?: 1 or 2 3. How often do you have six or more drinks on one occasion?: Never Total Score: 1 Score Reviewed/Action Taken: No CHRIS-7 AMB Questionnaire CHRIS-7 Date CHRIS - 7 assessed: 05/11/23 Feeling nervous, anxious, or on edge: 0 = Not at all Not being able to stop or control worryin = Not at all Worrying too much about different things: 0 = Not at all Trouble relaxin = Not at all Being so restless that it is hard to sit still: 0 = Not at all Becoming easily annoyed or irritable: 0 = Not at all Feeling afraid as if something awful might happen: 0 = Not at all Total CHRIS-7 score (0-4 normal; 5-9 mild; 10-14 moderate; 15-21 severe): 0 Source: Developed by Drs. Xavi Jameson, Sadie Tafoya, Eder Villafana and colleagues, with an educational starr from [employer]. CHRIS-7 Assessment Billing CHRIS-7 Assessment Tool: CHRIS-7 Assessment 62472 Review of Systems Const All systems reviewed & are unremarkable except as noted in HPI and below Eyes Reports no additional complaints, Denies change in vision and Denies other visual disturbances Card Denies chest pain at rest, Denies chest pain with activity, Denies edema, Denies irregular heart rhythm, Denies claudication, Denies dyspnea, Denies dyspnea on exertion, Denies orthopnea, Denies paroxysmal nocturnal dyspnea and Denies slow heart rate Resp Denies cough, Denies dyspnea and Denies dyspnea on exertion GI Denies abdominal pain, Denies change in bowel habits, Denies excessive flatus, Denies nausea and Denies vomiting Denies urinary incontinence, Denies urinary hesitancy and Denies urinary urgency Musc Denies abnormal gait, Denies atrophy, Denies deformity and Denies limited range of motion Skin/Breast Denies bleeding lesions, Denies changing lesions and Denies rash Neuro Denies abnormal gait, Denies behavioral changes, Denies confusion and Denies lack of coordination Psych Denies behavioral changes and Denies confusion Physical exam (Primary Care) Vital Signs: Last Vital Signs Pulse 74 05/11/23 16:10 BP 122/70 05/11/23 16:10 Pulse Ox 98 05/11/23 16:10 Oxygen Delivery Method Room Air 05/11/23 16:10 BMI result Body Mass Index 28.7 Tobacco/Smoking Status: Tobacco use Status Tobacco use date assessed 05/11/23 05/11/23 16:13 Patient Tobacco Use Status Never used Tobacco 05/11/23 16:10 e-Cigarette/Vaping Use Never Used 05/11/23 16:10 PHQ-9: PHQ-9 Score PHQ-9: Total score 0 05/11/23 16:19 Depression Screening Interpretation: Negative Thrive Assessment: Date of Thrive Assessment Date Thrive assessed 05/11/23 05/11/23 16:13 Const General: No confusion Orientation/consciousness: patient oriented x3 and No confusion HENMT Head: Yes normal to inspection, Yes normocephalic and Yes atraumatic Ears: external ears normal Eyes General: appearance normal, both eyes and all related structures Eyelids: Yes eyelids normal Conjunctivae: conjunctivae normal Neck Neck: Yes normal visual inspection and Yes supple Resp Effort & Inspection: normal respiratory effort Auscultation: clear to auscultation bilaterally Cardio Jugular venous distension: no JVD Rate: regular rate Rhythm: regular rhythm Heart sounds: S1 normal heart sound present and S2 normal heart sound present GI Inspection: Yes normal to inspection Palpation (GI): Soft to palpation and nontender Auscultation: normal bowel sounds Skin General skin exam: no rashes or lesions noted Neuro General: patient oriented x3, no focal motor deficits and No confusion Extrem General: Yes full ROM Psych Appearance: grossly normal Office Procedures Flu Questionnaire Does the patient have a severe egg allergy?: No Does the patient have severe life threatening allergies?: No Does the patient have a fever or illness today?: No Has the patient ever had Guillain-[place]ck Syndrome?: No Has the patient ever had any past reaction to a flu shot?: No Immunizations flu vacc [id number] 6mos up(PF) 60 mcg(15 mcgx4)/0.5 mL IM syringe Performing Provider: Katy Feng MD [facility] Administered by: SELWYN Onofre on 05/11/23 16:22 Dose Route Admin Location Dispensed Lot Number Expiration Date [employer] Operator 0.5 mL IM Left Deltoid 0.5 mL [id number] 01/01/24 [id number] [employer] VIS Given Date VIS Provided VIS Publication Date 05/11/23 Single Vaccine 21 Eligibility Eligibility Date Funding Source Not [facility] Eligible 05/11/23 Private Assessment and Plan Assessment & Plan (1) Physical exam: Code(s): Z00.00 - Encounter for general adult medical examination without abnormal findings Plan: Repeat in a year. (2) Mild recurrent major depression: Code(s): F33.0 - Major depressive disorder, recurrent, mild Plan: In remission. Orders: Orders Influenza [id number] Immunization Today Z23 - Encounter for immunization Comprehensive [place]. Panel Fast Today Z00.00 - Encounter for general adult medical examination without abnormal findings Lipid Panel Today E78.5 - Hyperlipidemia, unspecified MM screening mammo BI Today Z12.31 - Encounter for screening mammogram for malignant neoplasm of breast Coding Level of Care Code Est Pt Prev Care 40-64y(97094) Diagnoses Physical exam Z00.00 Mild recurrent major depression F33.0 Additional Codes CHRIS-7 Assessment Billing - CHRIS-7 Assessment Tool: CHRIS-7 Assessment 08849 ([id number]) Time Spent (min) 32
== END 2023-05-11 16:37 | disposition home or self-care (01) ==
PROVIDERS: Visit Provider Internal Medicine
DX: Z00.00 Encounter for general adult medical examination without abnormal findings (principal); F33.0 Major depressive disorder, recurrent, mild; Z23 Encounter for immunization
CPT/HCPCS: 90471; 90686; 99396

== ENCOUNTER 2023-09-01 16:26 | Outpatient (AMB) | payer OTHER, SELFPAY ==
--- NOTE | 2023-09-01 16:30 | AM.OFFWIN_ITS ---
Intake Vital Signs 09/01/23 16:33 Height 5 ft 3 in Weight 162 lb BMI 28.7 BP 110/72 Blood Pressure Location Rt brachial Position Sitting Pulse 100 Pulse Source Pulse Oximeter Temp 98.0 F Temp Source Oral Pulse Oximetry (%) 100 Intake Visit Reasons: EP ?UTI Intake Note: pt is here for c.o possible uti Patient Tobacco Use Status: Never used Tobacco Allergies Penicillins Allergy (Verified 09/01/23 16:32) Anaphylaxis Do you need a note to return to daycare/school/sports/work: No HPI HPI Comments History of Present Illness Details 43 y/o female who [facility] with c/o Urinary symptoms that started this morning. Pt reports burning with urination and suprapubic pain and urinary frequency. Denies vaginal discharge. Sexually active with 1 male partner. LMP: last week. Denies . [facility] Medical History Bronchitis Polyarthralgia Surgical History Keloid scar Hx of wisdom tooth extraction Family History Maternal Aunt Stomach cancer Paternal Aunt Breast cancer Mother Asthma CAD (coronary artery disease) Father CAD (coronary artery disease) Social History Housing: Apartment Alcohol intake: current Alcohol intake frequency: holidays/special occasions only Alcohol type: hard liquor Patient Tobacco Use Status: Never used Tobacco e-Cigarette/Vaping Use: Never Used Second Hand Smoke Exposure: No service: No Current occupational status: employed Current occupation: works in [employer] Gender identity: Female Cognitive needs: No Hearing needs: No Vision needs: Yes Review of Systems Const All systems reviewed & are unremarkable except as noted in HPI and below Physical Exam Vital Signs: Last Vital Signs Temp 98.0 F 09/01/23 16:33 Pulse 100 09/01/23 16:33 BP 110/72 09/01/23 16:33 Pulse Ox 100 09/01/23 16:33 BMI result Body Mass Index 28.7 Const General: comfortable and no acute distress Orientation/consciousness: patient oriented x3 Other: Deferred Pelvic examination. General: Yes no CVA tenderness OB/external & speculum: Deferred OB/external & speculum exam Back/Spine/Pelvis Back: no CVA tenderness Neuro General: patient oriented x3 and gait normal Psych Speech and movement: Clear speech present Affect: normal affect Results AMB Urinalysis, Automated UA Leukoctes 15 John/uL Last Edit by Bob Dorman CMA on 09/01/23 16:43 UA Nitrite Positive Last Edit by Bob Dorman CMA on 09/01/23 16:43 UA Urobilinogen 0.2 mg/dL Last Edit by Bob Domran CMA on 09/01/23 16 :43 UA Protein 300 mg/dL Last Edit by Bob Dorman CMA on 09/01/23 16:43 UA pH 6.0 Last Edit by Bob Dorman CMA on 09/01/23 16:43 UA Blood 200 Gen/uL Last Edit by Bob Dorman CMA on 09/01/23 16:43 UA Specific [place] 1.030 Last Edit by Bob Dorman CMA on 09/01/23 16:43 UA Ketone Positive Last Edit by Bob Dorman CMA on 09/01/23 16:43 UA Bilirubin 0 mg/dL Last Edit by Bob Dorman CMA on 09/01/23 16:43 UA Glucose 0 mg/dL Last Edit by Bob Doramn CMA on 09/01/23 16:43 Results Reviewed Results Reviewed: Laboratory Last Values Urine pH (Auto) 6.0 09/01/23 16:42 Specific [place] (Auto) 1.030 09/01/23 16:42 Urine Protein (Auto) 300 mg/dL 09/01/23 16:42 Glucose (UA)(Auto) 0 mg/dL 09/01/23 16:42 Urine Ketones (Auto) Positive 09/01/23 16:42 Urine Blood (Auto) 200 Gen/uL 09/01/23 16:42 Urine Nitrite (Auto) Positive 09/01/23 16:42 Urine Bilirubin (Auto) 0 mg/dL 09/01/23 16:42 Urine Urobilinogen (Auto) 0.2 mg/dL 09/01/23 16:42 Leukocyte Esterase (Auto) 15 John/uL 09/01/23 16:42 Assessment & Plan Assessment & Plan (1) Cystitis: Code(s): N30.90 - Cystitis, unspecified without hematuria Plan: - Hydrate with plenty of water. - PCP ordered Urinalysis today, unfortunately Pt did not provide adequate sample, advised Pt RTC Tomorrow for urine sample - Will start Empirical Abx to help with symptoms - AZO for Urinary relief. Orders: Orders AMB Urinalysis Automated Today Z13.9 - Encounter for screening, unspecified UA CC w/rflx Micro + Cult Today R39.9 - Unspecified symptoms and signs involving the genitourinary system Medications: New phenazopyridine 200 mg PO TID 2 days 6 tabs 0RF N30.90 - Cystitis, unspecified without hematuria sulfamethoxazole-trimethoprim 800-160 mg (Bactrim DS) 1 tab PO BID 3 days 6 tabs 0RF N30.90 - Cystitis, unspecified without hematuria Coding Level of Care Code Est Pt Level 3 (53296) Diagnoses Cystitis N30.90 Time Spent (min) 15
[2023-09-01 16:33] VITALS: BP 110/72; PULSE 100; TEMP 36.7; O2SAT 100; BMI 28.7
== END 2023-09-01 17:17 | disposition home or self-care (01) ==
PROVIDERS: PCP Internal Medicine; Visit Provider Nurse Practitioner Family
DX: N30.90 Cystitis, unspecified without hematuria (principal); R30.9 Painful micturition, unspecified
CPT/HCPCS: 81003; 99213

== ENCOUNTER 2023-10-18 12:07 | Outpatient (AMB) | payer OTHER, SELFPAY ==
--- NOTE | 2023-10-18 12:17 | MHC.OFFWIV ---
Intake Vital Signs 10/18/23 12:24 Height 5 ft 3 in Weight 162 lb BMI 28.7 BP 122/74 Blood Pressure Location Lt brachial Position Sitting Pulse 76 Pulse Source Pulse Oximeter Temp 98.5 F Temp Source Oral Pulse Oximetry (%) 98 Intake Visit Reasons: EP UTI/Sore throat (lobby) Patient Tobacco Use Status: Never used Tobacco Allergies Penicillins Allergy (Verified 10/18/23 12:25) Anaphylaxis Medication List - Last Reconciled 10/18/23 by Mello Case MD albuterol sulfate 90 mcg/actuation 2 puffs inhalation Q4-6H PRN 30 days Breo Ellipta 200-25 mcg/dose (fluticasone furoate-vilanterol) 1 ea PO DAILY NS ibuprofen 400 mg PO Q8H ipratropium-albuterol 0.5 mg-3 mg(2.5 mg base)/3 mL 3 mL inhalation Q6H PRN tizanidine 4 mg PO BEDTIME Do you need a note to return to daycare/school/sports/work: No HPI EP UTI/Sore throat (lobby) HPI Details Patient is a 43-year-old female who was evaluated few days ago for UTI and was prescribed Bactrim Patient says that her symptoms got better, she was doing well now she has mild burning not as bad as before She was treated with Bactrim for 3 days only She also have a sore throat for the past 1 week, her 16-year-old son also have sore throat There is also mild cough without any chest congestion There is no shortness a breath no headache no nausea vomiting diarrhea no abdominal pain no chest pain Her strep test is negative Patient is allergic to penicillin I have sent Bactrim for 5 days which will help her with urine as well as for pharyngitis [facility] Medical History Bronchitis Polyarthralgia Surgical History Keloid scar Hx of wisdom tooth extraction Family History Maternal Aunt Stomach cancer Paternal Aunt Breast cancer Mother Asthma CAD (coronary artery disease) Father CAD (coronary artery disease) Social History Housing: Apartment Alcohol intake: current Alcohol intake frequency: holidays/special occasions only Alcohol type: hard liquor Patient Tobacco Use Status: Never used Tobacco e-Cigarette/Vaping Use: Never Used Second Hand Smoke Exposure: No service: No Current occupational status: employed Current occupation: works in [employer] Gender identity: Female Cognitive needs: No Hearing needs: No Vision needs: Yes Review of Systems Const All systems reviewed & are unremarkable except as noted in HPI and below Physical Exam Vital Signs: Last Vital Signs Temp 98.5 F 10/18/23 12:24 Pulse 76 10/18/23 12:24 BP 122/74 10/18/23 12:24 Pulse Ox 98 10/18/23 12:24 BMI result Body Mass Index 28.7 Const General: no acute distress HEENT Other: Mild throat erythema present, uvula midline, no exudate. Ears: mastoids normal General nose exam: Normal external nose present Throat: Yes posterior oropharynx abnormal Neck Neck: Yes no lymphadenopathy Resp Effort & Inspection: normal respiratory effort Auscultation: clear to auscultation bilaterally Cardio Other: S1 S2 Psych Mental Status: mental status grossly normal Results AMB Rapid Strep AMB Rapid Strep Negative Last Edit by Bob Dorman CMA on 10/18/23 12:33 AMB Urinalysis, Automated UA Leukoctes 0 John/uL Last Edit by Bob Dorman CMA on 10/18/23 12:33 UA Nitrite Positive Last Edit by Bob Dorman CMA on 10/18/23 12:33 UA Urobilinogen 0.2 mg/dL Last Edit by Bob Dorman CMA on 10/18/23 12:33 UA Protein 15 mg/dL Last Edit by Bob Dorman CMA on 10/18/23 12:33 UA pH 6.0 Last Edit by Bob Dorman CMA on 10/18/23 12:33 UA Blood 0 Gen/uL Last Edit by Bob Dorman CMA on 10/18/23 12:33 UA Specific [place] 1.025 Last Edit by Bob Dorman CMA on 10/18/23 12:33 UA Ketone Negative Last Edit by Bob Dorman CMA on 10/18/23 12:33 UA Bilirubin 1 mg/dL Last Edit by Bob Dorman CMA on 10/18/23 12:33 UA Glucose 0 mg/dL Last Edit by Bob Dorman CMA on 10/18/23 12:33 Results Reviewed Results Reviewed: Laboratory Last Values Urine pH (Auto) 6.0 10/18/23 12:32 Specific [place] (Auto) 1.025 10/18/23 12:32 Urine Protein (Auto) 15 mg/dL 10/18/23 12:32 Glucose (UA)(Auto) 0 mg/dL 10/18/23 12:32 Urine Ketones (Auto) Negative 10/18/23 12:32 Urine Blood (Auto) 0 Gen/uL 10/18/23 12:32 Urine Nitrite (Auto) Positive 10/18/23 12:32 Urine Bilirubin (Auto) 1 mg/dL 10/18/23 12:32 Urine Urobilinogen (Auto) 0.2 mg/dL 10/18/23 12:32 Leukocyte Esterase (Auto) 0 John/uL 10/18/23 12:32 Strep Scn Rapid [facility] Negative 10/18/23 12:32 Assessment & Plan Assessment & Plan (1) Dysuria: Code(s): R30.0 - Dysuria (2) Acute pharyngitis: Code(s): J02.9 - Acute pharyngitis, unspecified Qualifiers: Pharyngitis/tonsillitis etiology: other specified organisms Qualified Code(s): J02.8 - Acute pharyngitis due to other specified organisms Plan Patient is a 43-year-old female who was evaluated few days ago for UTI and was prescribed Bactrim Patient says that her symptoms got better, she was doing well now she has mild burning not as bad as before She was treated with Bactrim for 3 days only She also have a sore throat for the past 1 week, her 16-year-old son also have sore throat There is also mild cough without any chest congestion There is no shortness a breath no headache no nausea vomiting diarrhea no abdominal pain no chest pain Her strep test is negative Patient is allergic to penicillin I have sent Bactrim for 5 days which will help her with urine as well as for pharyngitis Orders: Orders AMB Rapid Strep Screen Today Z13.9 - Encounter for screening, unspecified AMB Urinalysis Automated Today Z13.9 - Encounter for screening, unspecified Medications: Changed From sulfamethoxazole-trimethoprim 800-160 mg (Bactrim DS) 1 tab PO BID 3 days 6 tabs 0RF N30.90 - Cystitis, unspecified without hematuria To sulfamethoxazole-trimethoprim 800-160 mg (Bactrim DS) 1 tab PO BID 10 tabs 0RF 5 days N30.90 - Cystitis, unspecified without hematuria Coding Level of Care Code Est Pt Level 3 (42468) Diagnoses Dysuria R30.0 Acute pharyngitis due to other specified organisms J02.8 Pharyngitis/tonsillitis etiology: other specified organisms
[2023-10-18 12:24] VITALS: BP 122/74; PULSE 76; TEMP 36.9; O2SAT 98; BMI 28.7
== END 2023-10-18 12:38 | disposition home or self-care (01) ==
PROVIDERS: PCP Internal Medicine; Visit Provider Internal Medicine
DX: R30.0 Dysuria (principal); J02.8 Acute pharyngitis due to other specified organisms; Z13.9 Encounter for screening, unspecified
CPT/HCPCS: 81003; 87880; 99213

== ENCOUNTER 2024-05-16 16:11 | Outpatient (AMB) | payer OTHER, SELFPAY ==
--- NOTE | 2024-05-16 16:14 | MHC.PC.OV ---
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 Accompanied by: Self / Same As Patient Allergies Penicillins Allergy (Verified 05/16/24 16:29) Anaphylaxis Medication List - Last Reconciled 05/16/24 by Katy Feng MD albuterol sulfate 90 mcg/actuation 2 puffs inhalation Q4-6H PRN 30 days Breo Ellipta 200-25 mcg/dose (fluticasone furoate-vilanterol) 1 ea PO DAILY NS ibuprofen 400 mg PO Q8H ipratropium-albuterol 0.5 mg-3 mg(2.5 mg base)/3 mL 3 mL inhalation Q6H PRN tizanidine 4 mg PO BEDTIME Tobacco use date assessed: 05/16/24 Dental Screening Dental Screen Date: 05/16/24 Did you have a dental visit in the last 12 months?: Yes Did you have a dental problem in the last 6 months where you did not have access to dental care?: No Was dental information given to patient?: Patient has dentist HPI HPI Comments History of Present Illness Details This is a 43 year old female that comes for her physical exam. Pap smear done 2019. I will order a mammogram. No chest pain or shortness of breath. Mild major depression is in remission. [facility] Medical History (Updated 05/16/24 @ 16:33 by Katy Feng MD) Bronchitis Polyarthralgia Surgical History Keloid scar Hx of wisdom tooth extraction Family History Maternal Aunt Stomach cancer Paternal Aunt Breast cancer Mother Asthma CAD (coronary artery disease) Father CAD (coronary artery disease) Social History (Updated 05/16/24 @ 16:32 by Katy Feng MD) Housing: Apartment Alcohol intake: current Alcohol intake frequency: a few times a week Alcohol type: hard liquor Patient Tobacco Use Status: Never used Tobacco e-Cigarette/Vaping Use: Never Used Second Hand Smoke Exposure: No service: No Current occupational status: employed Current occupation: works in [employer] Current occupational exposures/hazards: No Gender identity: Female Cognitive needs: No Hearing needs: No Vision needs: Yes Questionnaire PHQ-9 Over the last 2 weeks, how often have you been bothered by any of the following problems? 1. Little interest or pleasure in doing things: not at all 2. Feeling down, depressed, or hopeless: not at all 3. Trouble falling or staying asleep, or sleeping too much: nearly every day 4. Feeling tired or having little energy: nearly every day 5. Poor appetite or overeating: not at all 6. Feeling bad about yourself - or that you are a failure or have let yourself or your family down: not at all 7. Trouble concentrating on things, such as reading the newspaper or watching television: not at all 8. Moving or speaking so slowly that other people could have noticed. Or the opposite - being so fidgety or restless that you have been moving around a lot more than usual: not at all 9. Thoughts that you would be better off or of hurting yourself in some way: not at all Total score: 6 Depression Screening Interpretation: Positive Depression Screening Follow-up: Existing condition and Follow-up Visit Requested Depression Screening Done: Yes 71760 - PHQ-9 Billing: Yes Source: Developed by Drs. Xavi Jameson, Sadie Tafoya, Eder Villafana and colleagues, with an educational starr from [employer]. Thrive Questionnaire Date Thrive assessed: 05/16/24 I am a: Patient What is your living situation today?: I have a steady place to live Within the past 12 months, did the food you bought not last and you didn't have the money to get more?: Never true Within the past 12 months, did you worry whether your food would run out before you got money to buy more?: Never true Do you have trouble paying for medicines?: No Do you have trouble getting transportation to medical appointments?: No Do you have trouble paying your heating and electricity bill?: No Do you have trouble taking care of your child, family member or friend?: No Do you have trouble with day-to-day activities such as bathing, preparing meals, shopping, managing finances, etc.?: Yes Are you currently unemployed and looking for a job?: No Are you interested in more education?: No Please select the resources that you would like help with: None Currently or been in a relationship where the following occur: No concerns reported THRIVE Score: 0 AUDIT C Alcohol Use Questionnaire (AUDIT-C) 1. How often do you have a drink containing alcohol?: 2-3 times a week 2. How many drinks containing alcohol do you have on a typical day when you are drinking?: 1 or 2 3. How often do you have six or more drinks on one occasion?: Never Total Score: 3 CHRIS-7 AMB Questionnaire CHRIS-7 Date CHRIS - 7 assessed: 05/16/24 Feeling nervous, anxious, or on edge: 0 = Not at all Not being able to stop or control worryin = Not at all Worrying too much about different things: 0 = Not at all Trouble relaxin = Not at all Being so restless that it is hard to sit still: 0 = Not at all Becoming easily annoyed or irritable: 0 = Not at all Feeling afraid as if something awful might happen: 0 = Not at all Total CHRIS-7 score (0-4 normal; 5-9 mild; 10-14 moderate; 15-21 severe): 0 Source: Developed by Drs. Xavi Jameson, Sadie Tafoya, Eder Villafana and colleagues, with an educational starr from [employer]. CHRIS-7 Assessment Billing CHRIS-7 Assessment Tool: CHRIS-7 Assessment 90740 Review of Systems Const All systems reviewed & are unremarkable except as noted in HPI and below Card Denies chest pain at rest, Denies chest pain with activity, Denies edema, Denies irregular heart rhythm, Denies claudication, Denies dyspnea, Denies dyspnea on exertion, Denies orthopnea, Denies paroxysmal nocturnal dyspnea and Denies slow heart rate Resp Denies cough, Denies dyspnea and Denies dyspnea on exertion GI Denies abdominal pain, Denies change in bowel habits, Denies excessive flatus, Denies nausea and Denies vomiting Physical exam (Primary Care) Vital Signs: Last Vital Signs BP 118/70 05/16/24 16:16 BMI result Body Mass Index 28.0 Tobacco/Smoking Status: Tobacco use Status Tobacco use date assessed 05/16/24 05/16/24 16:20 Patient Tobacco Use Status Never used Tobacco 05/16/24 16:32 e-Cigarette/Vaping Use Never Used 05/16/24 16:32 PHQ-9: PHQ-9 Score PHQ-9: Total score 6 05/16/24 17:12 Depression Screening Interpretation: Positive Depression Screening Follow-up: Existing condition and Follow-up Visit Requested Thrive Assessment: Date of Thrive Assessment Date Thrive assessed 05/16/24 05/16/24 16:20 Currently or been in a relationship where the following occur: No concerns reported HENID Head: Yes normal to inspection, Yes normocephalic and Yes atraumatic Ears: external ears normal Eyes General: appearance normal, both eyes and all related structures Eyelids: Yes eyelids normal Conjunctivae: conjunctivae normal Neck Neck: Yes normal visual inspection and Yes supple Resp Effort & Inspection: normal respiratory effort Auscultation: clear to auscultation bilaterally Cardio Jugular venous distension: no JVD Rate: regular rate Rhythm: regular rhythm Heart sounds: S1 normal heart sound present and S2 normal heart sound present GI Inspection: Yes normal to inspection Palpation (GI): Soft to palpation and nontender Auscultation: normal bowel sounds Skin General skin exam: no rashes or lesions noted Neuro General: no focal motor deficits Extrem General: Yes full ROM Psych Appearance: grossly normal Office Procedures Flu Questionnaire Does the patient have a severe egg allergy?: No Immunizations Fluarix Triv [id number] (PF) 45 mcg (15 mcg x 3)/0.5 mL IM syringe Performing Provider: Katy Feng MD Performing Location: [facility] – [place] [facility] Documented (not given) by: SELWYN Macario on 05/16/24 17:12 Reason Not Given: Not Given Coding Level of Care Code Est Pt Prev Care 40-64y(17721) Diagnoses Physical exam Z00.00 Mild recurrent major depression F33.0 Additional Codes CHRIS-7 Assessment Billing - CHRIS-7 Assessment Tool: CHRIS-7 Assessment 89964 ([id number]) PHQ-9 - 37452 - PHQ-9 Billing: Yes ([id number]) Time Spent (min) 30 Assessment & Plan Assessment & Plan (1) Physical exam: Code(s): Z00.00 - Encounter for general adult medical examination without abnormal findings Category: Medical Plan: Repeat in a year. (2) Mild recurrent major depression: Code(s): F33.0 - Major depressive disorder, recurrent, mild Category: Medical Plan: In remission. Orders: Orders Lipid Panel Today E78.5 - Hyperlipidemia, unspecified Influenza [id number] Immunization Today Z23 - Encounter for immunization Comprehensive [place]. Panel Fast Today Z00.00 - Encounter for general adult medical examination without abnormal findings
[2024-05-16 16:16] VITALS: BP 118/70; BMI 28.0
== END 2024-05-16 16:38 | disposition home or self-care (01) ==
PROVIDERS: PCP Internal Medicine; Visit Provider Internal Medicine
DX: Z00.00 Encounter for general adult medical examination without abnormal findings (principal); F33.0 Major depressive disorder, recurrent, mild; Z23 Encounter for immunization

== ENCOUNTER → 2024-05-16 16:11 | Outpatient (BNVA) | payer OTHER, SELFPAY | PROVIDERS: PCP Internal Medicine; Visit Provider Internal Medicine | DX: Z00.00 Encounter for general adult medical examination without abnormal findings (principal); F33.0 Major depressive disorder, recurrent, mild | CPT/HCPCS: 90471; 96127; 99396 ==

== ENCOUNTER 2025-05-22 19:41 | Emergency (ER) | payer OTHER, SELFPAY ==
[2025-05-22 19:45] VITALS: BP 150/70; PULSE 82; RESP 20; TEMP 36.4; O2SAT 100; BMI 24.8
--- NOTE | 2025-05-22 19:46 | ED.URI ---
HPI - URI/Sore Throat General Chief Complaint: Urogenital-Female Stated Complaint: UTI, cough Time Seen by Provider: 05/22/25 22:37 Source: patient, RN notes reviewed and old records reviewed Mode of arrival: ambulatory Limitations: no limitations History of Present Illness ED Provider: Melissa ROLON Narrative: 44-year-old female presents for evaluation of a cough as well as UTI symptoms. The patient reports that she has had a dry cough for the last 3 months. She reports that she initially got sick with the rest of her family did but her cough has not resolved. She has a history of asthma but is out of her nebulizer solution pain She reports that she takes albuterol with ipratropium bromide. She reports that her health insurance in his not active until next month. She also reports burning with urination increased urinary frequency. She denies any concerns for sexually transmitted infections Related Data Home Medications ?Medication ?Instructions ?Recorded ?Confirmed ibuprofen 200 mg tablet 400 mg PO Q8H 10/15/22 05/16/24 Previous Rx's ?Medication ?Instructions ?Recorded Breo Ellipta 200 mcg-25 mcg/dose 1 ea PO DAILY #60 ea 04/20/23 powder for inhalation (fluticasone furoate-vilanterol) albuterol sulfate 90 mcg/actuation 2 puff inhalation Q4-6H PRN 04/20/23 aerosol inhaler shortness of breath or wheezing 30 days #1 ea ipratropium 0.5 mg-albuterol 3 mg 3 ml inhalation Q6H PRN shortness 04/20/23 (2.5 mg base)/3 mL nebulization of breath or wheezing #180 mL soln tizanidine 4 mg tablet 4 mg PO BEDTIME #90 tabs 05/14/24 cefuroxime axetil 250 mg tablet 250 mg PO Q12H #10 tabs 05/22/25 ipratropium 0.5 mg-albuterol 3 mg 3 ml inhalation Q6-8H PRN 05/22/25 (2.5 mg base)/3 mL nebulization shortness of breath or wheezing soln #90 mL Allergies Allergy/AdvReac Type Severity Reaction Status Date / Time Penicillins Allergy Anaphylaxis Verified 05/22/25 19:48 Review of Systems Constitutional: Constitutional: Denies chills and Denies fever(s) ENT: Denies dizziness Cardiovascular: Cardiovascular: Reports dyspnea and Reports dyspnea on exertion Respiratory: Respiratory: Denies change in phlegm color, Denies chest congestion, Reports cough, Reports dyspnea, Reports dyspnea on exertion and Reports wheezing Gastrointestinal: Gastrointestinal: Denies abdominal pain, Denies nausea and Denies vomiting Genitourinary: Genitourinary: Reports dysuria Comments: Urinary frequency Neurologic: Denies dizziness Allergic/Immunologic: Allergic/Immunologic: Reports wheezing PMFSH Past Medical History Medical History Bronchitis Polyarthralgia Surgical History Keloid scar Hx of wisdom tooth extraction Family History Family History Maternal Aunt Stomach cancer Paternal Aunt Breast cancer Mother Asthma CAD (coronary artery disease) Father CAD (coronary artery disease) Social History Social History (Updated 05/16/24 @ 16:32 by Katy Feng MD) Housing: Apartment Alcohol intake: current Alcohol intake frequency: a few times a week Alcohol type: hard liquor Patient Tobacco Use Status: Never used Tobacco e-Cigarette/Vaping Use: Never Used Second Hand Smoke Exposure: No Advance Directives: No Advance Directives Information Provided: No service: No Current occupational status: employed Current occupation: works in [employer] Current occupational exposures/hazards: No Gender identity: Female Cognitive needs: No Hearing needs: No Vision needs: Yes Physical Exam Vital Signs: Vital Signs: Last Vital Signs Temp 97.6 F 05/22/25 19:45 Pulse 89 05/22/25 23:01 Resp 18 05/22/25 23:01 BP 127/77 05/22/25 23:01 Pulse Ox 99 05/22/25 23:01 O2 Del Method Room Air 05/22/25 23:01 BMI result Body Mass Index 24.8 Const: General: healthy appearing, comfortable, no acute distress, alert and awake Nutritional Appearance: well nourished Orientation/consciousness: patient oriented x3 HEENT: Head: Yes normocephalic and Yes atraumatic Eyes: Eyelids: Yes eyelids normal Conjunctivae: conjunctivae normal Sclerae: sclerae normal Corneas: corneas normal Pupils: Equal, round and reactive pupils present EOM: EOMs intact bilaterally Neck: Neck: Yes full ROM Resp: Effort & Inspection: normal respiratory effort, able to speak in complete sentences, no audible wheezes and not labored Auscultation: clear to auscultation bilaterally Skin: General skin exam: elasticity normal Neuro: General: patient oriented x3 Cranial nerves: Yes Equal, round and reactive pupils present and Yes Bilaterally intact EOM present Cognition (Neuro): normal cognition Course Course Course Narrative: This is a Rapid Medical Exam performed in triage by Lexis Boo PA-C. Full HPI, ROS and PE to be performed by primary ED provider. 44 yo F w/PMHx fibromyalgia presenting to the ED c/o dysuria & frequency x4 days. Also reports cough since February. PE: talking in complete sentences, ambulating with steady gait, nontoxic appearing Plan: CXR, UA, viral testing Medical Decision Making Medical Decision Making MDM Narrative: 44-year-old female presents for evaluation of a dry cough as well as UTI symptoms. She denies concern for sexually transmitted infection and therefore a pelvic exam with swabs was not performed. Urinalysis is pending. I did recommend a chest x-ray as the patient has had a cough for 2 months. She reports that her insurance will not cover this and does not want this done currently. Given that her vital signs are stable, she is not hypoxic in his quite well appearing I feel it is appropriate to defer chest x-ray at this time. Viral swabs were performed which are negative Differential Diagnosis Differential Diagnoses: The differential diagnosis associated with the presentation includes Upper respiratory infection UTI Bronchitis Pneumonia COVID-19 Influenza Lab Data Labs: Lab Results 05/22/25 05/22/25 Range/Units 20:10 22:46 Urine Color Yellow Urine Appearance Clear Urine pH 6.0 (5.0-9.0) Ur Specific [place] >= 1.030 H (1.005-1.025) Urine Protein Negative (Neg-Trace) mg/dL Urine Glucose (UA) Negative (Negative) mg/dL Urine Ketones Trace (Negative) mg/dL Urine Blood Negative (Negative) Urine Nitrite Positive H (Negative) Ur Leukocyte Esterase Negative (Negative) Urine RBC 0-2 (0-2) /HPF Urine WBC 6-10 H (0-5) /HPF Ur Squamous Epith Cells 0-2 (0-2) /HPF Urine Bacteria 4+ (None Seen) Hyaline Casts 0-2 (0-2) /LPF Urine Test NEGATIVE (NEGATIVE) Influenza Type A (PCR) NEGATIVE (Negative) Influenza Type B (PCR) NEGATIVE (Negative) RSV RNA Qual (PCR) NEGATIVE (Negative) SARS-CoV-2 RNA (RT-PCR) NEGATIVE (Negative) Discharge Plan Discharge Clinical Impression: Urinary tract infection Patient Disposition: Home, Self-Care Instructions: Urinary Tract Infection in Women (ED) Additional Instructions: You do have a urinary tract infection pain Take the cefuroxime twice daily for 5 days. I also sent a refill for your nebulizer machine Follow up with your primary doctor, return for new or worsening symptoms Prescriptions: New ipratropium-albuterol 0.5 mg-3 mg(2.5 mg base)/3 mL solution for nebulization 3 ml inhalation Q6-8H PRN (Reason: shortness of breath or wheezing) Qty: 90 0RF cefuroxime axetil 250 mg tablet 250 mg PO Q12H Qty: 10 0RF No Action tizanidine 4 mg tablet 4 mg PO BEDTIME Qty: 90 1RF ibuprofen 200 mg tablet 400 mg PO Q8H albuterol sulfate 90 mcg/actuation HFA aerosol inhaler 2 puff inhalation Q4-6H PRN (Reason: shortness of breath or wheezing) 30 Days Qty: 1 6RF fluticasone furoate-vilanterol [Breo Ellipta] 200-25 mcg/dose blister with device 1 ea PO DAILY Qty: 60 6RF ipratropium-albuterol 0.5 mg-3 mg(2.5 mg base)/3 mL solution for nebulization 3 ml inhalation Q6H PRN (Reason: shortness of breath or wheezing) Qty: 180 1RF Print Language: Latvian
[2025-05-22 21:05] LABS: Resp Syncy Virus RNA Qual PCR NEGATIVE (Negative); SARS COV2 PCR INHOUSE NEGATIVE (Negative)
--- NOTE | 2025-05-22 22:29 | PC.NURSE ---
pt concerned with UTI and possible bronchitis. CC is burning pain and frequent urgency to urinate. confirms urethral pain, worse when urinating. States has had a cough for months, hx of asthma, ran out of nebulizer medication. Insurance doesn't kick in for a few weeks and declined Xray of chest.
[2025-05-22 23:01] VITALS: BP 127/77; PULSE 89; RESP 18; O2SAT 99
[2025-05-22 23:03] LABS: Appearance Urine Clear; Glucose Urine UA Negative (Negative); PH 6.0 (5.0-9.0); Specific Gravity - Urine >= 1.030 (1.005-1.025); UMIC TRIGGER UACC YES; UPreg QC Valid YES
[2025-05-22 23:07] LABS: UACC Culture Trigger YES
[2025-05-22 23:41] VITALS: BP 127/77; PULSE 89; RESP 18; TEMP 36.6; O2SAT 99
== END 2025-05-23 00:31 | disposition home or self-care (01) ==
PROVIDERS: Physician Assistant; Emergency Provider Emergency Medicine; PCP Student in an Organized Health Care Education/Training Program
DX: N39.0 Urinary tract infection, site not specified (principal); R30.9 Painful micturition, unspecified; Z03.818 Encounter for observation for suspected exposure to other biological agents ruled out; J45.909 Unspecified asthma, uncomplicated; Z79.51 Long term (current) use of inhaled steroids
CPT/HCPCS: 81001; 81003; 81025; 87086; 87088; 87186; 87637; 99283; 99284